=== PATIENT | male | born 1960 | race Caucasian/White ===

== ENCOUNTER 2018-08-29 11:04 | Day surgery (SDC) | payer MEDICAID ==
[~2018-08-29] VITALS: Ht 188 cm; Wt 124.0 kg
[~2018-08-29 11:04] MED LIST: FAMO40TA7 PO; LACRIL OP; NUTR250L61 JT; REGLAN PO; [UNRECOGNIZED DRUG - CODE] TD; clindamycin PEG
[2018-08-29 11:22] VITALS: BP 86/62
[2018-08-29] MEDS ORDERED: HALO0.5T GT ×2 (11:36→11:38)
[2018-08-29] MEDS ORDERED: FAMO40TA7 GT (11:42)
[2018-08-29] MEDS ORDERED: MIRT15TA3 GT (11:43)
[2018-08-29] MEDS ORDERED: DIPH25TA2 GT (11:44)
[2018-08-29] MEDS ORDERED: iohexol 300 MG/1 ML 50ml polymer ONE (11:46)
[2018-08-29] MEDS ORDERED: POLY17PO10 PO (11:49)
[2018-08-29] MEDS ORDERED: METO-292 GT (11:50)
[2018-08-29] MEDS ORDERED: OMEG1CAP13 GT (11:53)
[2018-08-29] MEDS ORDERED: IBUP100O20 PO (11:54)
[2018-08-29] MEDS ORDERED: LIDOcaine 1%/PF 5ML 10 MG/ML VIAL SQ ONE (12:00)
[2018-08-29 12:20] VITALS: BP 85/64
== END 2018-08-29 12:25 | disposition home or self-care (01) ==
LOC: SSTAY O 11:04
PROVIDERS: ATTEND Radiology Vascular & Interventional Radiology
DX: K94.23 Gastrostomy malfunction (principal); Y83.8 Other surgical procedures as the cause of abnormal reaction of the patient, or of later complication, without mention of misadventure at the time of the procedure; Y92.89 Other specified places as the place of occurrence of the external cause; G24.01 Drug induced subacute dyskinesia; F41.8 Other specified anxiety disorders; K21.9 Gastro-esophageal reflux disease without esophagitis; F10.21 Alcohol dependence, in remission; Z87.19 Personal history of other diseases of the digestive system; Z87.39 Personal history of other diseases of the musculoskeletal system and connective tissue; Z86.73 Personal history of transient ischemic attack (TIA), and cerebral infarction without residual deficits; Z86.69 Personal history of other diseases of the nervous system and sense organs; Z87.891 Personal history of nicotine dependence; Z87.01 Personal history of pneumonia (recurrent); Z99.3 Dependence on wheelchair; Z90.49 Acquired absence of other specified parts of digestive tract; Z79.1 Long term (current) use of non-steroidal anti-inflammatories (NSAID); Z79.899 Other long term (current) drug therapy; Z88.8 Allergy status to other drugs, medicaments and biological substances; Z98.890 Other specified postprocedural states
CPT/HCPCS: 49450; Q9967

== ENCOUNTER 2018-09-11 11:46 | Emergency (ER) | payer MEDICAID ==
[~2018-09-11] VITALS: Ht 188 cm; Wt 56.4 kg
[~2018-09-11 11:46] MED LIST changes: +DIPH25TA2 GT; +FAMO40TA7 GT; -FAMO40TA7 PO; +HALO0.5T GT; +IBUP100O20 PO; +METO-292 GT; +MIRT15TA3 GT; +OMEG1CAP13 GT; +POLY17PO10 PO; -[UNRECOGNIZED DRUG - CODE] TD; -clindamycin PEG
[2018-09-11 12:43] VITALS: BP 103/72
== END 2018-09-11 17:41 | disposition home or self-care (01) ==
LOC: ER 11:47
DX: R51 Headache (principal); Z88.8 Allergy status to other drugs, medicaments and biological substances; Z79.899 Other long term (current) drug therapy; Z98.890 Other specified postprocedural states
CPT/HCPCS: 99281

== ENCOUNTER 2018-11-27 12:02 | Emergency (ER) | payer OTHER, MEDICAID ==
[~2018-11-27] VITALS: Ht 188 cm; Wt 56.4 kg
--- NOTE | 2018-11-27 12:28 | NUR ---
PT BROUGHT IN FROM PARKING LOT IN PT OWN WHEELCHAIR, PT IS NON AMBULATORY WHEELCHAIR BOUND, CAREGIVER AT BEDSIDE DISCUSSING PT HX AND CURRENT STATUS WITH DR APODACA NOW.
[2018-11-27] MEDS ORDERED: normal saline 1000ML IV soln IVB ONE (12:45)
[2018-11-27 13:34] LABS: ALANINE AMINOTRANSFERASE 40 U/L (12-78); ALBUMIN 2.4 G/DL (3.4-5.0); ALBUMIN/GLOBULIN RATIO 0.5 (1.1-1.5); ALKALINE PHOSPHATASE 155 IU/L (46-116); ANION GAP 9 (8-16); ASPARTATE AMINO TRANSFERASE 34 U/L (10-37); BILIRUBIN,TOTAL 0.3 MG/DL (0.1-1.0); BLOOD UREA NITROGEN 56 MG/DL (7-18); BUN/CREATININE RATIO 39.4 (5.4-32.0); CALCIUM 9.1 MG/DL (8.5-10.1); CHLORIDE 108 MMOL/L (99-107); CREATININE 1.42 MG/DL (0.60-1.10); GLUCOSE 89 MG/DL (70-104); LIPASE 97 U/L (73-393); POTASSIUM 5.3 MMOL/L (3.5-5.1); SODIUM 146 MMOL/L (135-145); TOTAL CARBON DIOXIDE 29.1 MMOL/L (24-32); TOTAL PROTEIN 7.7 G/DL (6.4-8.2); eGFR 52 ML/MIN
[2018-11-27 13:58] LABS: CLARITY,URINE CLOUDY (Clear); COLOR,URINE YELLOW (Yellow); GLUCOSE, URINE NEGATIVE (Neg); KETONES,URINE NEGATIVE (Neg); LEUKOCYTE ESTERASE ,URINE LARGE (Neg); NITRITES, URINE POSITIVE (Neg); OCCULT BLOOD,URINE LARGE (Neg); PH,URINE 7.5 (4.8-8.0); PROTEIN,URINE 30 mg/dl (Neg); UA COLLECTION TYPE STRAIGHT CATH; UROBILINOGEN,URINE 0.2 E.U/dL (0.2-1.0)
[2018-11-27 14:13] LABS: RBC,URINE 20-50 /HPF (0-2); SQUAMOUS EPITHELIAL CELL,UR FEW /LPF (FEW); WBC,URINE 50-100 /HPF (0-4)
[2018-11-27 14:14] LABS: BACTERIA,URINE 2+ /HPF (Neg)
[2018-11-27 14:20] LABS: BASOPHILS % (AUTO) 0.4 % (0-1); EOSINOPHILS # (AUTO) 0.1 X10'3 (0-0.9); EOSINOPHILS % (AUTO) 1.2 % (0-6); HEMATOCRIT 36.7 % (42.0-52.0); HEMOGLOBIN 12.1 g/dl (14.0-17.9); LYMPHOCYTES # (AUTO) 0.6 X10'3 (1.1-4.8); LYMPHOCYTES % (AUTO) 10.6 % (21-51); MEAN CORPUSCULAR HEMOGLOBIN 27.3 PG (27.0-31.0); MEAN CORPUSCULAR HGB CONC 32.9 g/dL (33.0-36.5); MEAN PLATELET VOLUME 9.6 FL (7.4-10.4); MONOCYTES # (AUTO) 0.4 X10'3 (0-0.9); MONOCYTES % (AUTO) 8.2 % (2-12); NEUTROPHILS # (AUTO) 4.2 X10'3 (1.8-7.7); NEUTROPHILS % (AUTO) 79.6 % (42-75); PLATELET COUNT 118 X10'3 (140-440); RED BLOOD COUNT 4.43 X10'6 (4.70-6.10); WHITE BLOOD COUNT 5.2 X10'3 (4.5-11.0)
[2018-11-27] MEDS ORDERED: LEVO500T2 PO (15:28)
[2018-11-27] MEDS ORDERED: CefTRIAXone/D5W-Rocephin 1gm 50 ML IV ONE (15:30)
[2018-11-27 16:25] VITALS: BP 107/79
== END 2018-11-27 16:27 | disposition home or self-care (01) ==
LOC: ER 12:02
DX: S30.811A Abrasion of abdominal wall, initial encounter (principal); N39.0 Urinary tract infection, site not specified; R05 Cough; Z88.8 Allergy status to other drugs, medicaments and biological substances; Z79.899 Other long term (current) drug therapy; X58.XXXA Exposure to other specified factors, initial encounter; Y93.89 Activity, other specified; Y92.89 Other specified places as the place of occurrence of the external cause; Y99.8 Other external cause status
CPT/HCPCS: 36415; 71045; 80053; 81001; 83605; 83690; 85025; 87040; 87070; 87077; 87088; 87186; 96365; 99284; J0696; J7030

== ENCOUNTER 2018-11-30 23:44 | Inpatient (IN) | payer MEDICAID, OTHER | END 2018-12-06 17:45 | disposition home or self-care (01) | LOC: ER 23:44 → SUR 3N 12-03 17:05 → CICU 2S 12-01 01:38 | PROC: 5A1945Z Respiratory Ventilation, 24-96 Consecutive Hours (ICD-10-PCS; principal; ~2018-11-30) | PROC: 0BH17EZ Insertion of Endotracheal Airway into Trachea, Via Natural or Artificial Opening (ICD-10-PCS; ~2018-11-30) | DX: J96.00 Acute respiratory failure, unspecified whether with hypoxia or hypercapnia (principal); R57.1 Hypovolemic shock; N39.0 Urinary tract infection, site not specified; N20.0 Calculus of kidney; K92.2 Gastrointestinal hemorrhage, unspecified ==

== ENCOUNTER 2019-09-28 13:18 | Emergency (ER) | payer MEDICARE, MEDICAID, OTHER ==
[~2019-09-28] VITALS: Ht 188 cm; Wt 56.4 kg
[~2019-09-28 13:18] MED LIST changes: +ACYC15OI7 TP; -DIPH25TA2 GT; +DOCO2CRE TP; -FAMO40TA7 GT; -HALO0.5T GT; -IBUP100O20 PO; -LACRIL OP; -METO-292 GT; -MIRT15TA3 GT; -NUTR250L61 JT; -OMEG1CAP13 GT; -REGLAN PO; +RIFA550T PO; +VALA500T41 PO
[2019-09-28] MEDS ORDERED: normal saline 1000ML IV soln IVB ONE (13:50)
[2019-09-28 14:55] LABS: BASOPHILS % (AUTO) 0.3 % (0-1); EOSINOPHILS # (AUTO) 0.4 X10'3 (0-0.9); HEMATOCRIT 44.2 % (42.0-52.0); HEMOGLOBIN 14.5 g/dl (14.0-17.9); LYMPHOCYTES # (AUTO) 0.8 X10'3 (1.1-4.8); LYMPHOCYTES % (AUTO) 11.2 % (21-51); MEAN CORPUSCULAR HEMOGLOBIN 26.9 PG (27.0-31.0); MEAN CORPUSCULAR HGB CONC 32.8 g/dL (33.0-36.5); MEAN CORPUSCULAR VOLUME 81.9 FL (78-98); MEAN PLATELET VOLUME 9.8 FL (7.4-10.4); MONOCYTES # (AUTO) 0.6 X10'3 (0-0.9); MONOCYTES % (AUTO) 8.3 % (2-12); NEUTROPHILS # (AUTO) 5.4 X10'3 (1.8-7.7); NEUTROPHILS % (AUTO) 74.2 % (42-75); PLATELET COUNT 152 X10'3 (140-440); RED CELL DISTRIBUTION WIDTH 14.7 % (11.5-14.5); WHITE BLOOD COUNT 7.2 X10'3 (4.5-11.0)
[2019-09-28 15:12] LABS: ALANINE AMINOTRANSFERASE 49 U/L (12-78); ALBUMIN 3.3 G/DL (3.4-5.0); ALBUMIN/GLOBULIN RATIO 0.8 (1.1-1.5); ALKALINE PHOSPHATASE 210 IU/L (46-116); ANION GAP 7 (8-16); ASPARTATE AMINO TRANSFERASE 30 U/L (10-37); BILIRUBIN,TOTAL 0.6 MG/DL (0.1-1.0); BLOOD UREA NITROGEN 22 MG/DL (7-18); BUN/CREATININE RATIO 28.6 (5.4-32.0); CALCIUM 9.6 MG/DL (8.5-10.1); CHLORIDE 105 MMOL/L (99-107); CREATININE 0.77 MG/DL (0.60-1.10); GLUCOSE 100 MG/DL (70-104); POTASSIUM 4.8 MMOL/L (3.5-5.1); SODIUM 142 MMOL/L (135-145); TOTAL CARBON DIOXIDE 29.6 MMOL/L (24-32); TOTAL PROTEIN 7.6 G/DL (6.4-8.2); eGFR > 90 ML/MIN
[2019-09-28 15:14] LABS: CLARITY,URINE CLOUDY (Clear); COLOR,URINE YELLOW (Yellow); GLUCOSE, URINE NEGATIVE (Neg); KETONES,URINE NEGATIVE (Neg); LEUKOCYTE ESTERASE ,URINE LARGE (Neg); NITRITES, URINE NEGATIVE (Neg); OCCULT BLOOD,URINE LARGE (Neg); PROTEIN,URINE 100 mg/dl (Neg); UA COLLECTION TYPE FOLEY CATH
[2019-09-28 15:21] LABS: WBC,URINE TNTC /HPF (0-4)
[2019-09-28 15:22] LABS: BACTERIA,URINE 1+ /HPF (Neg); MUCUS STRANDS NONE SEEN /LPF (Neg); RBC,URINE 20-50 /HPF (0-2); SQUAMOUS EPITHELIAL CELL,UR NONE SEEN /LPF (FEW); WBC CLUMPS,URINE MANY /HPF (NEGATIVE)
[2019-09-28] MEDS ORDERED: CefTRIAXone/D5W-Rocephin 1gm 50 ML IV ONE (15:25)
[2019-09-28 16:03] VITALS: BP 118/87
[2019-09-28] MEDS ORDERED: KEF125L PO (16:16)
== END 2019-09-28 17:39 | disposition home or self-care (01) ==
LOC: ER 13:19
DX: R30.0 Dysuria (principal); R45.6 Violent behavior; N39.0 Urinary tract infection, site not specified; Z86.73 Personal history of transient ischemic attack (TIA), and cerebral infarction without residual deficits; K21.9 Gastro-esophageal reflux disease without esophagitis; Z98.890 Other specified postprocedural states; Z88.8 Allergy status to other drugs, medicaments and biological substances; Z79.899 Other long term (current) drug therapy
CPT/HCPCS: 36415; 80053; 81001; 83605; 85025; 87040; 87077; 87088; 87186; 96365; 99285; J0696; J7030; 99283

== ENCOUNTER 2019-10-03 10:03 | Emergency (ER) | payer MEDICARE, OTHER, MEDICAID ==
[~2019-10-03] VITALS: Ht 188 cm; Wt 56.4 kg
[~2019-10-03 10:03] MED LIST changes: +KEF125L PO
--- NOTE | 2019-10-03 11:58 | NUR ---
Notified Dr. Camara regarding unability to obtain CT. Patient unable to hold still for scan.
[2019-10-03] MEDS ORDERED: LORazepam 2 mg/ml vial IM ONE (12:35)
[2019-10-03] MEDS ORDERED: diphenhydrAMINE 50 mg/ml inj IM ONE (12:40)
[2019-10-03] MEDS ORDERED: haloperidol lactate 5mg/ml inj IM ONE (12:40)
--- NOTE | 2019-10-03 12:40 | NUR ---
Notified Dr. Camara regarding patients inability to go to CT scan, Dr. Camara gave verbal order for haldol 5 mg IM once now and benedryl 25 mg IM once now. Will place order and administer as prescribed.
--- NOTE | 2019-10-03 12:50 | NUR ---
Notified Dilma in CT regarding patient having been medicated for CT scan. Will attempt to take patient to CT scan at 1305.
[2019-10-03 14:30] VITALS: BP 145/100
== END 2019-10-03 14:33 | disposition home or self-care (01) ==
LOC: ER 10:04
DX: T83.098D Other mechanical complication of other urinary catheter, subsequent encounter (principal); N20.0 Calculus of kidney; K21.9 Gastro-esophageal reflux disease without esophagitis; Z86.73 Personal history of transient ischemic attack (TIA), and cerebral infarction without residual deficits; Z98.890 Other specified postprocedural states; Z88.8 Allergy status to other drugs, medicaments and biological substances; Z79.899 Other long term (current) drug therapy; Y84.6 Urinary catheterization as the cause of abnormal reaction of the patient, or of later complication, without mention of misadventure at the time of the procedure; Y92.89 Other specified places as the place of occurrence of the external cause
CPT/HCPCS: 74176; 96372; 99284; J1200; J1630

== ENCOUNTER 2020-03-14 10:17 | Inpatient (IN) | payer MEDICARE, OTHER, MEDICAID ==
[~2020-03-14] VITALS: Ht 188 cm; Wt 47.3 kg
[~2020-03-14 10:17] MED LIST changes: -KEF125L PO
--- NOTE | 2020-03-14 10:42 | NUR ---
DR MARY MADE AWARE OF BP 74/57, IVF INITIATED PER .
[2020-03-14 10:54] LABS: CLARITY,URINE CLOUDY (Clear); COLOR,URINE YELLOW (Yellow); GLUCOSE, URINE NEGATIVE (Neg); KETONES,URINE NEGATIVE (Neg); LEUKOCYTE ESTERASE ,URINE MODERATE (Neg); NITRITES, URINE NEGATIVE (Neg); OCCULT BLOOD,URINE LARGE (Neg); PH,URINE 6.5 (4.8-8.0); PROTEIN,URINE 100 mg/dl (Neg)
[2020-03-14 10:55] LABS: UA COLLECTION TYPE FOLEY CATH
[2020-03-14 10:55] LABS: WHITE BLOOD COUNT 11.9 X10'3 (4.5-11.0)
[2020-03-14 10:57] LABS: BASOPHILS % (AUTO) 0.2 % (0-1); EOSINOPHILS % (AUTO) 0 % (0-6); HEMATOCRIT 39.9 % (42.0-52.0); LYMPHOCYTES # (AUTO) 0.2 X10'3 (1.1-4.8); LYMPHOCYTES % (AUTO) 1.7 % (21-51); MEAN CORPUSCULAR HEMOGLOBIN 26.6 PG (27.0-31.0); MEAN CORPUSCULAR HGB CONC 32.6 g/dL (33.0-36.5); MEAN CORPUSCULAR VOLUME 81.6 FL (78-98); MONOCYTES # (AUTO) 0.6 X10'3 (0-0.9); MONOCYTES % (AUTO) 5.5 % (2-12); NEUTROPHILS % (AUTO) 92.6 % (42-75); PLATELET COUNT 214 X10'3 (140-440); RED BLOOD COUNT 4.88 X10'6 (4.70-6.10); RED CELL DISTRIBUTION WIDTH 15.5 % (11.5-14.5)
--- NOTE | 2020-03-14 10:57 | NUR ---
DR APODACA AT BEDSIDE TO ASSESS PATIENT AT THIS TIME. SON AT BEDSIDE, DNR ORDER SHOWN TO MD, COPY MADE AND PLACED IN CHART.
[2020-03-14 11:02] LABS: RBC,URINE TNTC /HPF (0-2); SQUAMOUS EPITHELIAL CELL,UR NONE SEEN /LPF (FEW)
[2020-03-14 11:02] LABS: ALANINE AMINOTRANSFERASE 31 U/L (12-78); ALBUMIN 2.7 G/DL (3.4-5.0); ALBUMIN/GLOBULIN RATIO 0.6 (1.1-1.5); ALKALINE PHOSPHATASE 156 IU/L (46-116); ANION GAP 9 (8-16); ASPARTATE AMINO TRANSFERASE 24 U/L (10-37); BILIRUBIN,TOTAL 0.5 MG/DL (0.1-1.0); BLOOD UREA NITROGEN 25 MG/DL (7-18); BUN/CREATININE RATIO 15.7 (5.4-32.0); CHLORIDE 100 MMOL/L (99-107); CREATININE 1.59 MG/DL (0.60-1.10); GLUCOSE 142 MG/DL (70-104); POTASSIUM 3.7 MMOL/L (3.5-5.1); SODIUM 133 MMOL/L (135-145); TOTAL CARBON DIOXIDE 23.8 MMOL/L (24-32); TOTAL PROTEIN 7.4 G/DL (6.4-8.2); eGFR 45 ML/MIN
[2020-03-14 11:03] LABS: WBC CLUMPS,URINE MODERATE /HPF (NEGATIVE); WBC,URINE TNTC /HPF (0-4)
[2020-03-14 11:05] LABS: BACTERIA,URINE 2+ /HPF (Neg)
[2020-03-14] MEDS ORDERED: normal saline 1000ML IV soln IVB ONE (11:15)
[2020-03-14] MEDS ORDERED: CefTRIAXone/D5W-Rocephin 1gm 50 ML IV ONE (11:15)
[2020-03-14 11:23] LABS: TOTAL CELLS COUNTED 100
[2020-03-14 11:26] LABS: PLATELET ESTIMATE NORMAL; TOXIC VACUOLATION 1+
[2020-03-14] MEDS ORDERED: METO5SOL GT (11:39)
[2020-03-14] MEDS ORDERED: BACDS GT (11:39)
[2020-03-14] MEDS ORDERED: FAMO40TA59 GT (11:39)
[2020-03-14] MEDS ORDERED: METH1TAB32 GT (11:39)
[2020-03-14] MEDS ORDERED: normal saline 1000ml 1,000 ML IV SCH (11:48)
[2020-03-14] MEDS ORDERED: mag hydrox/Alum hydrox/simeth 30ml oral suspension PO PRN (11:50)
[2020-03-14] MEDS ORDERED: magnesium hydroxide 30ml (MOM) UD suspension PO PRN (11:50)
[2020-03-14] MEDS ORDERED: morphine 2 MG/ML inj. syringe IV PRN ×2 (11:50)
[2020-03-14] MEDS ORDERED: ondansetron/PF 4mg/2ml inj IV PRN (11:50)
[2020-03-14] MEDS ORDERED: acetaminophen 325mg tablet PO PRN ×2 (11:50)
--- NOTE | 2020-03-14 13:09 | NUR ---
PAGER ID: [phone] MESSAGE: [phone] Fide Haddad new patient to the unit, he needs the comfort care measures orders entered. VIDYA in chart. Thank you. Debra [id number]
--- NOTE | 2020-03-14 13:16 | NUR ---
Patient on the unit
[2020-03-14 13:30] VITALS: BP 76/63
--- NOTE | 2020-03-14 13:36 | NUR ---
PAGER ID: [phone] MESSAGE: [phone] Mike Haddad He needs a restraint order as well. He has been in them in the ER without an order. Debra [phone]
--- NOTE | 2020-03-14 14:49 | NUR ---
Dr. Torres paged regarding needing order for restraints. Awaiting call back.
--- NOTE | 2020-03-14 15:00 | NUR ---
Patient in with chronic restraints from home. Patient will kick and throw arm to hit staff. Order received to continue.
[2020-03-14] MEDS: dextrose 5%-1/2 normal saline 1,000 ML IV SCH (15:41)
--- NOTE | 2020-03-14 16:03 | NUR ---
Talked by phone to Hans, he is aware patient is currently on D5 1/2NS and not using the peg tube to feed patient currently. Hans states that he wants brother home violet so they can take care of the patient because they know how to care for him and his needs.
[2020-03-14 20:00] VITALS: BP 73/55
[2020-03-14 20:30] VITALS: BP 80/54
[2020-03-15] VITALS: BP 74/53
[2020-03-15] MEDS: dextrose 5%-1/2 normal saline 1,000 ML IV SCH (04:49)
--- NOTE | 2020-03-15 06:30 | NUR ---
Problems reprioritized. Patient report given, questions answered & plan of care reviewed with Loren DOW.
--- NOTE | 2020-03-15 06:44 | NUR ---
Patient in room [facility] 347. I have received report from VICTOR M Wolf and had the opportunity to ask questions and assume patient care.
[2020-03-15] MEDS: CefTRIAXone/D5W-Rocephin 1gm 50 ML IV SCH (07:30)
[2020-03-15 07:52] VITALS: BP 84/55
[2020-03-15] MEDS ORDERED: LORazepam 2 mg/ml vial IV ONE (10:25)
[2020-03-15] MEDS ORDERED: vancomycin/NS 1 GM ADD-VANTAGE 250 ML IV ONE (10:25)
[2020-03-15 11:00] VITALS: BP 107/71
[2020-03-15] MEDS: vancomycin/NS 1 GM ADD-VANTAGE 250 ML X 1 DOSE IV SCH (11:43)
[2020-03-15 12:29] LABS: BASOPHILS % (AUTO) 0.4 % (0-1); EOSINOPHILS # (AUTO) 0.1 X10'3 (0-0.9); EOSINOPHILS % (AUTO) 1.4 % (0-6); HEMATOCRIT 36.2 % (42.0-52.0); HEMOGLOBIN 11.6 g/dl (14.0-17.9); LYMPHOCYTES # (AUTO) 0.4 X10'3 (1.1-4.8); LYMPHOCYTES % (AUTO) 5.9 % (21-51); MEAN CORPUSCULAR HEMOGLOBIN 26.4 PG (27.0-31.0); MEAN CORPUSCULAR HGB CONC 31.9 g/dL (33.0-36.5); MEAN CORPUSCULAR VOLUME 82.6 FL (78-98); MEAN PLATELET VOLUME 9.1 FL (7.4-10.4); MONOCYTES # (AUTO) 0.3 X10'3 (0-0.9); MONOCYTES % (AUTO) 4.9 % (2-12); NEUTROPHILS # (AUTO) 6.2 X10'3 (1.8-7.7); NEUTROPHILS % (AUTO) 87.4 % (42-75); PLATELET COUNT 180 X10'3 (140-440); RED BLOOD COUNT 4.39 X10'6 (4.70-6.10); RED CELL DISTRIBUTION WIDTH 15.4 % (11.5-14.5); WHITE BLOOD COUNT 7.1 X10'3 (4.5-11.0)
[2020-03-15 12:40] LABS: ALBUMIN 2.2 G/DL (3.4-5.0); ANION GAP 7 (8-16); BLOOD UREA NITROGEN 19 MG/DL (7-18); CALCIUM 8.8 MG/DL (8.5-10.1); CHLORIDE 109 MMOL/L (99-107); CREATININE 0.95 MG/DL (0.60-1.10); GLUCOSE 97 MG/DL (70-104); POTASSIUM 4.9 MMOL/L (3.5-5.1); SODIUM 141 MMOL/L (135-145); TOTAL CARBON DIOXIDE 25.5 MMOL/L (24-32); eGFR 82 ML/MIN
--- NOTE | 2020-03-15 15:11 | NUR ---
Tube feeding consult re: to continue home tube feed. Has a Gtube. H/o TBI, WC bound, and mx colectomies as a teen. Pt was receiving Nutren at home. Spoke with Hans (patient's brother and caregiver) over telephone and Bedside RN. Reported that at home patient receives the following: bolus feeds four times daily using Nutren 1.5 with 150 ml bolus with 400 ml free water flush at 8:00, 150 ml bolus with 400 ml water flush at 12:00, 250 ml bolus with 400 ml water flush at 16:00, and 250 ml bolus with 400 ml water flush at 20:00; this is providing total volume of 800 ml, 1200 cals, 54 g protein, and 611 ml water at home. Patient takes reglan at home, brother Hans reported that patient cannot tolerate high volumes and cannot go higher than that. With the patient receiving 400 ml of free water with each feeding he could likely tolerate a higher volume of tube feeding with a decrease in water flush. Called [facility] for the prescribed tube feeding regimen which is 5 cans of Nutren 1.5 daily; each can is 250 ml. This provides 1250 ml volume, 85 g protein, 955 ml water. The home tube feeding regimen at home is providing 675 calories less than the recommended tube feeding given by the dietitians at [facility]. Visited patient at bedside with student nurse, observed that patient appears with visible fat and muscle wasting, student nurse able to place hands around patient's thigh, visibly very small. Bedscale weight is 104 lbs. However patient's brother reports weight to be 124 lbs for two years. Minerva reports a weight of 124 lbs last September. Last admission pt met criteria for malnutrition as he does again for cachetic appearance. will notify oncology social work regarding discrepancy in reported wt, wt loss, and tube feeding regimen from home versus [facility]. Rec: 1. Continue [facility] tube feeding regimen for patient using Nutren 1.5 (patient's brother Hans who is caregiver is willing provide the formula per his preference). Provide 5 cans daily every 3 hours. Each bolus contains 250 ml. Provide five times daily at 8:00, 11:00, 14:00, 17:00, and 20:00. This will provide total volume 1250 ml volume daily, 1875 cals, 85 g protein, and 955 ml water. 2. water flush 95 ml before and after each bolus; will provide total of 190 ml each feeding and total of 950 ml water daily 3. prealbumin /, daily wts 4. routine bowel care; patient takes reglan at home d/w bedside RN who notified 5. monitor for TF tolerance Addendum: 03/15/20 at [address] Amended: Links added.
--- NOTE | 2020-03-15 17:10 | NUR ---
Patient does not have anymore tube feed formula left from home. Caregivers called and they stated that they would bring us in a good stock. Patient's next tube feed is due at 1800. Caregivers said they would be here as soon as possible.
--- NOTE | 2020-03-15 18:15 | NUR ---
Patient had residual tube feed of 500 mL. paged about holding tube feed for the 1800 time.
[2020-03-15 19:44] VITALS: BP 95/63
[2020-03-15] MEDS: lactobacillus rhamnosus 10,000 MMU CELLS/CAPSULE PO SCH (20:00)
[2020-03-15 23:42] VITALS: BP 103/71
[2020-03-16 05:23] LABS: BASOPHILS % (AUTO) 0.5 % (0-1); EOSINOPHILS # (AUTO) 0.1 X10'3 (0-0.9); EOSINOPHILS % (AUTO) 2.7 % (0-6); HEMATOCRIT 35.8 % (42.0-52.0); HEMOGLOBIN 11.5 g/dl (14.0-17.9); LYMPHOCYTES # (AUTO) 0.8 X10'3 (1.1-4.8); LYMPHOCYTES % (AUTO) 15.1 % (21-51); MEAN CORPUSCULAR HEMOGLOBIN 26.7 PG (27.0-31.0); MEAN CORPUSCULAR HGB CONC 32.1 g/dL (33.0-36.5); MEAN PLATELET VOLUME 9.3 FL (7.4-10.4); MONOCYTES # (AUTO) 0.5 X10'3 (0-0.9); MONOCYTES % (AUTO) 8.5 % (2-12); NEUTROPHILS # (AUTO) 3.9 X10'3 (1.8-7.7); NEUTROPHILS % (AUTO) 73.2 % (42-75); PLATELET COUNT 195 X10'3 (140-440); RED BLOOD COUNT 4.32 X10'6 (4.70-6.10); RED CELL DISTRIBUTION WIDTH 15.8 % (11.5-14.5); WHITE BLOOD COUNT 5.3 X10'3 (4.5-11.0)
[2020-03-16 05:25] LABS: ALBUMIN 2.2 G/DL (3.4-5.0); ANION GAP 5 (8-16); BLOOD UREA NITROGEN 17 MG/DL (7-18); CALCIUM 8.8 MG/DL (8.5-10.1); CHLORIDE 108 MMOL/L (99-107); CREATININE 0.81 MG/DL (0.60-1.10); GLUCOSE 116 MG/DL (70-104); POTASSIUM 4.4 MMOL/L (3.5-5.1); PREALBUMIN 12.9 MG/DL (19-36); SODIUM 140 MMOL/L (135-145); TOTAL CARBON DIOXIDE 26.6 MMOL/L (24-32); eGFR > 90 ML/MIN
--- NOTE | 2020-03-16 06:48 | NUR ---
Problems reprioritized. Patient report given, questions answered & plan of care reviewed with Mariel RN.
[2020-03-16 07:00] VITALS: BP 97/73
[2020-03-16] MEDS: CefTRIAXone/D5W-Rocephin 1gm 50 ML IV SCH (07:50)
[2020-03-16] MEDS: lactobacillus rhamnosus 10,000 MMU CELLS/CAPSULE PO SCH ×2 (07:50→19:16)
[2020-03-16 11:00] VITALS: BP 108/82
[2020-03-16] MEDS: vancomycin/NS 1 GM ADD-VANTAGE 250 ML X 1 DOSE IV SCH (11:55)
[2020-03-16 19:00] VITALS: BP 101/74
--- NOTE | 2020-03-16 19:02 | NUR ---
Problems reprioritized. Patient report given, questions answered & plan of care reviewed with VICTOR M Whiting.
[2020-03-17] VITALS: BP 95/68
[2020-03-17 06:18] LABS: ALBUMIN 2.3 G/DL (3.4-5.0); ANION GAP 7 (8-16); BLOOD UREA NITROGEN 17 MG/DL (7-18); BUN/CREATININE RATIO 30.4 (5.4-32.0); CALCIUM 8.1 MG/DL (8.5-10.1); CHLORIDE 108 MMOL/L (99-107); CREATININE 0.56 MG/DL (0.60-1.10); GLUCOSE 80 MG/DL (70-104); POTASSIUM 4.7 MMOL/L (3.5-5.1); SODIUM 141 MMOL/L (135-145); TOTAL CARBON DIOXIDE 26.1 MMOL/L (24-32); eGFR > 90 ML/MIN
--- NOTE | 2020-03-17 06:49 | NUR ---
Patient in room [facility] 347. I have received report from Henok DOW and had the opportunity to ask questions and assume patient care.
[2020-03-17 07:00] VITALS: BP 113/78
[2020-03-17] MEDS: lactobacillus rhamnosus 10,000 MMU CELLS/CAPSULE PO SCH (08:00)
[2020-03-17 08:34] LABS: BASOPHILS % (AUTO) 0.8 % (0-1); EOSINOPHILS # (AUTO) 0.1 X10'3 (0-0.9); EOSINOPHILS % (AUTO) 3.2 % (0-6); HEMATOCRIT 38.5 % (42.0-52.0); HEMOGLOBIN 12.2 g/dl (14.0-17.9); LYMPHOCYTES # (AUTO) 1.2 X10'3 (1.1-4.8); LYMPHOCYTES % (AUTO) 28.5 % (21-51); MEAN CORPUSCULAR HEMOGLOBIN 26.1 PG (27.0-31.0); MEAN CORPUSCULAR HGB CONC 31.6 g/dL (33.0-36.5); MEAN CORPUSCULAR VOLUME 82.5 FL (78-98); MEAN PLATELET VOLUME 9.1 FL (7.4-10.4); MONOCYTES # (AUTO) 0.4 X10'3 (0-0.9); NEUTROPHILS # (AUTO) 2.5 X10'3 (1.8-7.7); NEUTROPHILS % (AUTO) 57.5 % (42-75); PLATELET COUNT 220 X10'3 (140-440); RED BLOOD COUNT 4.67 X10'6 (4.70-6.10); RED CELL DISTRIBUTION WIDTH 15.5 % (11.5-14.5); WHITE BLOOD COUNT 4.3 X10'3 (4.5-11.0)
--- NOTE | 2020-03-17 08:41 | NUR ---
Per Resource RN, Sara, pt pulled out his PEG tube despite restraints. GI clinical laboratory aide stated only MDs are allowed to replace PEG tubes. Dr. Torres notified and stated he'll call GI MD and for nursing to insert Perez catheter in site to maintain integrity of opening. Nsg Safety Sealer notified d/t P&P not found. GI clinical laboratory aide, Yu, inquired of and stated she will temporarily place a GTube to maintain integrity ONLY (no feeds) until PEG is placed by MD. Addendum: 03/17/20 at 0910 by Sheeba Villalpando RN Yu DOW stated GT placed to maintain integrity of os only, not for feeds, and Angio MD will insert new tube, per Dr. Torres.
--- NOTE | 2020-03-17 08:53 | NUR ---
[id number] PHONE CALL FROM SURGICAL FLOOR. LOW PROFILE PEG 18 X 2.0 FELL OUT. WAS ASKED BY DR TO PUT IN F/C TO KEEP TRACK OPEN. CHLORA PREP USED TO CLEAN SITE SITE,GÓMEZ CHLORIDE SPRAY TO PEG SITE, TO KNUMB AREA. PEG REPLACEMENT PLACED 18 FR BALLOON 10ML. THIS IS ONLY TEMPORARY TO KEEP TRACK OPEN. PT BEING REFURRES TO ANGIO DR TO REPLACE LOW FROFILE PEG.
[2020-03-17] MEDS: CefTRIAXone/D5W-Rocephin 1gm 50 ML IV SCH (09:38)
[2020-03-17] MEDS: vancomycin/NS 1 GM ADD-VANTAGE 250 ML X 1 DOSE IV SCH (11:00)
--- NOTE | 2020-03-17 12:00 | NUR ---
Patient tube placement complete, awaiting the results of KUB for use.
[2020-03-17] MEDS ORDERED: DOXY-243 PO (13:38)
[2020-03-17] MEDS ORDERED: LEVO500T2 PO (13:38)
--- NOTE | 2020-03-17 17:55 | NUR ---
Patient discharged into the care of family. patient medications were gone over at this time. Care was the same as prior to hospitalization so educational packets including sepsis and UTI were sent with patient. Patient was put in his own wheel chair for transport via gilbert lift, patient taken down to family by RN and discharge paper were signed at this time. Patient left with family at this time
[2020-03-18] MEDS ORDERED: VANCOMYCIN LEVEL IV ONE (10:30)
== END 2020-03-17 18:04 | disposition home health service (06) | DRG 871 ==
LOC: ER 10:17 → ED HOLD 11:48 → SUR 3N 13:11 → CMPBEDREQ 03-15 18:48
PROVIDERS: ADMIT Internal Medicine; ATTEND Internal Medicine
PROC: 0D20XUZ Change Feeding Device in Upper Intestinal Tract, External Approach (ICD-10-PCS; principal; 2020-03-17)
DX: A41.9 Sepsis, unspecified organism (principal); N17.0 Acute kidney failure with tubular necrosis; E43 Unspecified severe protein-calorie malnutrition; N39.0 Urinary tract infection, site not specified; Z68.1 Body mass index [BMI] 19.9 or less, adult; D64.9 Anemia, unspecified; B96.1 Klebsiella pneumoniae [K. pneumoniae] as the cause of diseases classified elsewhere; R65.20 Severe sepsis without septic shock; Z51.5 Encounter for palliative care; K21.9 Gastro-esophageal reflux disease without esophagitis; Z66 Do not resuscitate; Z86.73 Personal history of transient ischemic attack (TIA), and cerebral infarction without residual deficits; Z88.0 Allergy status to penicillin; Z88.8 Allergy status to other drugs, medicaments and biological substances; Z79.899 Other long term (current) drug therapy
CPT/HCPCS: 36415; 43763; 74018; 80048; 80053; 81001; 82948; 83605; 84134; 84145; 85007; 85025; 87040; 87077; 87081; 87088; 87186; 93005; 96365; 99285; B4087; G0378; J0696; J2060; J2270; J3370; J7030

== ENCOUNTER 2020-04-15 16:20 | Emergency (ER) | payer MEDICARE, OTHER, MEDICAID ==
[~2020-04-15] VITALS: Ht 165.1 cm; Wt 63.6 kg
[~2020-04-15 16:20] MED LIST changes: -ACYC15OI7 TP; -DOCO2CRE TP; +FAMO40TA59 GT; +LEVO500T2 PO; +METH1TAB32 GT; +METO5SOL GT; -POLY17PO10 PO; -RIFA550T PO; -VALA500T41 PO
[2020-04-15] MEDS ORDERED: ondansetron/PF 4mg/2ml inj IV ONE (16:30)
[2020-04-15] MEDS ORDERED: normal saline 1000ML IV soln IV ONE (16:30)
[2020-04-15] MEDS ORDERED: famotidine/PF 10 mg/ml inj IV ONE (16:30)
[2020-04-15 16:57] LABS: BASOPHILS % (AUTO) 0.6 % (0-1); EOSINOPHILS # (AUTO) 0.3 X10'3 (0-0.9); HEMATOCRIT 41.8 % (42.0-52.0); HEMOGLOBIN 13.5 g/dl (14.0-17.9); LYMPHOCYTES # (AUTO) 0.9 X10'3 (1.1-4.8); LYMPHOCYTES % (AUTO) 20.2 % (21-51); MEAN CORPUSCULAR HEMOGLOBIN 26.5 PG (27.0-31.0); MEAN CORPUSCULAR HGB CONC 32.3 g/dL (33.0-36.5); MEAN CORPUSCULAR VOLUME 82.1 FL (78-98); MEAN PLATELET VOLUME 9.3 FL (7.4-10.4); MONOCYTES # (AUTO) 0.4 X10'3 (0-0.9); MONOCYTES % (AUTO) 8.3 % (2-12); NEUTROPHILS # (AUTO) 2.7 X10'3 (1.8-7.7); NEUTROPHILS % (AUTO) 62.9 % (42-75); PLATELET COUNT 177 X10'3 (140-440); RED BLOOD COUNT 5.09 X10'6 (4.70-6.10); RED CELL DISTRIBUTION WIDTH 16.2 % (11.5-14.5); WHITE BLOOD COUNT 4.2 X10'3 (4.5-11.0)
[2020-04-15 17:11] LABS: ALANINE AMINOTRANSFERASE 39 U/L (12-78); ALBUMIN 3.3 G/DL (3.4-5.0); ALBUMIN/GLOBULIN RATIO 0.7 (1.1-1.5); ALKALINE PHOSPHATASE 164 IU/L (46-116); ANION GAP 7 (8-16); ASPARTATE AMINO TRANSFERASE 29 U/L (10-37); BILIRUBIN,TOTAL 0.4 MG/DL (0.1-1.0); BLOOD UREA NITROGEN 15 MG/DL (7-18); BUN/CREATININE RATIO 24.6 (5.4-32.0); CALCIUM 9.2 MG/DL (8.5-10.1); CHLORIDE 100 MMOL/L (99-107); CREATININE 0.61 MG/DL (0.60-1.10); GLUCOSE 108 MG/DL (70-104); POTASSIUM 4.3 MMOL/L (3.5-5.1); SODIUM 135 MMOL/L (135-145); TOTAL CARBON DIOXIDE 28.4 MMOL/L (24-32); TOTAL PROTEIN 7.8 G/DL (6.4-8.2); eGFR > 90 ML/MIN
[2020-04-15 17:24] LABS: CLARITY,URINE CLOUDY (Clear); COLOR,URINE YELLOW (Yellow); GLUCOSE, URINE NEGATIVE (Neg); KETONES,URINE NEGATIVE (Neg); LEUKOCYTE ESTERASE ,URINE LARGE (Neg); NITRITES, URINE POSITIVE (Neg); OCCULT BLOOD,URINE MODERATE (Neg); PROTEIN,URINE TRACE mg/dl (Neg)
[2020-04-15 17:26] LABS: UA COLLECTION TYPE STRAIGHT CATH
[2020-04-15 17:34] LABS: SQUAMOUS EPITHELIAL CELL,UR NONE SEEN /LPF (FEW)
[2020-04-15 17:35] LABS: MUCUS STRANDS NONE SEEN /LPF (Neg); RBC,URINE 20-50 /HPF (0-2); TRANSITIONAL EPI CELLS,URINE MODERATE /HPF
[2020-04-15 17:36] LABS: WBC,URINE 20-30 /HPF (0-4)
[2020-04-15 17:37] LABS: BACTERIA,URINE 4+ /HPF (Neg); RENAL CELLS, URINE FEW /HPF
[2020-04-15] MEDS: diatr meglu/diatrizoate 30ml oral sol.-(3 dose) bottle PO SCH ×3 (18:16→20:07)
[2020-04-15] MEDS ORDERED: haloperidol lactate 5mg/ml inj IM ONE (19:30)
[2020-04-15] MEDS ORDERED: diphenhydrAMINE 50 mg/ml inj IM ONE (19:30)
[2020-04-15 22:25] VITALS: BP 138/69
== END 2020-04-15 22:26 | disposition home or self-care (01) ==
LOC: ER 16:20
DX: S06.9X0D Unspecified intracranial injury without loss of consciousness, subsequent encounter (principal); T85.598A Other mechanical complication of other gastrointestinal prosthetic devices, implants and grafts, initial encounter; K21.9 Gastro-esophageal reflux disease without esophagitis; Z86.73 Personal history of transient ischemic attack (TIA), and cerebral infarction without residual deficits; Z98.890 Other specified postprocedural states; Z88.8 Allergy status to other drugs, medicaments and biological substances; Z79.899 Other long term (current) drug therapy; X58.XXXD Exposure to other specified factors, subsequent encounter
CPT/HCPCS: 36415; 71045; 74176; 80053; 81001; 83605; 85025; 87040; 87077; 87088; 93005; 96361; 96372; 96374; 96375; 99285; J1200; J1630; J2405; J3490; J7030; Q9963; 87186

== ENCOUNTER 2020-04-19 06:30 | Inpatient (IN) | payer MEDICARE, OTHER, MEDICAID ==
[~2020-04-19] VITALS: Ht 182.9 cm; Wt 54.5 kg
[~2020-04-19 06:30] MED LIST changes: -LEVO500T2 PO
[2020-04-19] MEDS ORDERED: dextrose 5%-normal saline 1,000 ML IV SCH (06:40)
[2020-04-19] MEDS ORDERED: normal saline 1000ML IV soln IVB ONE (06:40)
[2020-04-19] MEDS ORDERED: ondansetron/PF 4mg/2ml inj IV ONE (06:40)
--- NOTE | 2020-04-19 06:56 | NUR ---
Residual Check at 2230-350ml. Patient restless and irritable. Feeding @2200 held. Residual recheck @0030-300ml. Reglan administer to help with motility and some free water administer. Addendum: 04/20/20 at 0659 by Jason Gunter RN Wrong time for 0100
[2020-04-19 07:27] LABS: BASOPHILS % (AUTO) 0.5 % (0-1); EOSINOPHILS # (AUTO) 0.4 X10'3 (0-0.9); EOSINOPHILS % (AUTO) 5.3 % (0-6); HEMATOCRIT 40.6 % (42.0-52.0); HEMOGLOBIN 13.3 g/dl (14.0-17.9); LYMPHOCYTES # (AUTO) 1.1 X10'3 (1.1-4.8); LYMPHOCYTES % (AUTO) 13.8 % (21-51); MEAN CORPUSCULAR HEMOGLOBIN 26.9 PG (27.0-31.0); MEAN CORPUSCULAR HGB CONC 32.8 g/dL (33.0-36.5); MEAN CORPUSCULAR VOLUME 82.1 FL (78-98); MEAN PLATELET VOLUME 9.3 FL (7.4-10.4); MONOCYTES # (AUTO) 0.6 X10'3 (0-0.9); MONOCYTES % (AUTO) 7.6 % (2-12); NEUTROPHILS # (AUTO) 5.7 X10'3 (1.8-7.7); NEUTROPHILS % (AUTO) 72.8 % (42-75); PLATELET COUNT 199 X10'3 (140-440); RED BLOOD COUNT 4.94 X10'6 (4.70-6.10); RED CELL DISTRIBUTION WIDTH 16.2 % (11.5-14.5); WHITE BLOOD COUNT 7.8 X10'3 (4.5-11.0)
[2020-04-19 07:43] LABS: ALANINE AMINOTRANSFERASE 27 U/L (12-78); ALBUMIN 3.4 G/DL (3.4-5.0); ALBUMIN/GLOBULIN RATIO 0.8 (1.1-1.5); ALKALINE PHOSPHATASE 174 IU/L (46-116); ANION GAP 9 (8-16); ASPARTATE AMINO TRANSFERASE 23 U/L (10-37); BILIRUBIN,TOTAL 0.5 MG/DL (0.1-1.0); BLOOD UREA NITROGEN 15 MG/DL (7-18); BUN/CREATININE RATIO 23.4 (5.4-32.0); CALCIUM 9.3 MG/DL (8.5-10.1); CHLORIDE 101 MMOL/L (99-107); CREATININE 0.64 MG/DL (0.60-1.10); GLUCOSE 81 MG/DL (70-104); POTASSIUM 4.3 MMOL/L (3.5-5.1); SODIUM 137 MMOL/L (135-145); TOTAL CARBON DIOXIDE 26.7 MMOL/L (24-32); TOTAL PROTEIN 7.7 G/DL (6.4-8.2); eGFR > 90 ML/MIN
[2020-04-19 07:47] LABS: LIPASE 149 U/L (73-393); TROPONIN I < 0.04 NG/ML (0.0-0.05)
[2020-04-19 08:56] LABS: CLARITY,URINE CLOUDY (Clear); COLOR,URINE YELLOW (Yellow); GLUCOSE, URINE NEGATIVE (Neg); KETONES,URINE NEGATIVE (Neg); LEUKOCYTE ESTERASE ,URINE LARGE (Neg); NITRITES, URINE NEGATIVE (Neg); OCCULT BLOOD,URINE LARGE (Neg); PROTEIN,URINE 30 mg/dl (Neg)
[2020-04-19 09:02] LABS: UA COLLECTION TYPE FOLEY CATH
[2020-04-19 09:03] LABS: WBC,URINE TNTC /HPF (0-4)
[2020-04-19 09:04] LABS: BACTERIA,URINE 4+ /HPF (Neg); MUCUS STRANDS NONE SEEN /LPF (Neg); RBC,URINE TNTC /HPF (0-2); SQUAMOUS EPITHELIAL CELL,UR FEW /LPF (FEW); TRIPLE PHOSPHATE CRYST 1+ /HPF (NEGATIVE)
[2020-04-19] MEDS ORDERED: CefTRIAXone 2gm/D5W 50ml BAG 50 ML IV ONE (09:10)
[2020-04-19] MEDS ORDERED: morphine 4 MG/ML inj SYRINge IV ONE (09:10)
[2020-04-19] MEDS ORDERED: ketorolac trometh. 30mg/ml inj. IV ONE (09:25)
--- NOTE | 2020-04-19 09:45 | NUR ---
pediatric critical care nurse doing suctioning prn.
[2020-04-19] MEDS ORDERED: magnesium 4gm in 100ml NS 100 ML IV PRN (10:30)
[2020-04-19] MEDS ORDERED: magnesium Cl slow-release 64mg tablet PO PRN (10:30)
[2020-04-19] MEDS ORDERED: acetaminophen 650mg rectal suppository RC PRN (10:30)
[2020-04-19] MEDS ORDERED: ondansetron/PF 4mg/2ml inj IV PRN (10:30)
[2020-04-19] MEDS ORDERED: magnesium 2GM in 50ml NS 50 ML IV PRN (10:30)
[2020-04-19] MEDS ORDERED: metoclopramide 5 mg/ml inj IV PRN (10:30)
[2020-04-19] MEDS: normal saline 1000ml 1,000 ML IV SCH (11:00)
[2020-04-19] MEDS ORDERED: dextrose 50%-water 50ml dispensing syringe IV ONE (12:04)
[2020-04-19 12:21] VITALS: BP 137/99
--- NOTE | 2020-04-19 12:35 | NUR ---
Patient made it to room and was set up with medications ordered by pharmacy.
--- NOTE | 2020-04-19 12:36 | NUR ---
Patient reported on D5 NS at 50ml/hr patient was on NS on arrival and patient BG was 66, administering a half amp of d50.
[2020-04-19] MEDS: dextrose 5%-water 1,000 ML IV SCH ×2 (12:48→21:00)
--- NOTE | 2020-04-19 12:53 | NUR ---
Patient blood glucose is 112 after blood sugar recheck patient changed to d5w at 100ml/hr
[2020-04-19] MEDS: cefepime 1GM/NS ADD-VANTAGE 100 ML IV SCH (17:15)
--- NOTE | 2020-04-19 17:20 | NUR ---
TF Consult: Pt admit w/ hx TBI and PEG for nutrition needs DX UTI and N/V VICE PRESIDENT FIXED INCOME per EMR. Family reports pt vomits TF and foams at mouth after feeds per EMR though has hx underfeeding compared to Rx from [facility]. Pt has also tolerated all prior bolus feeds w/ GRV WNL prior admits in February this year and November last year. Hx receiving 400ml free water w/ each bolus feed QID and only 150ml tube feed first two feeds and 250ml last two feeds of the day at home reported prior admit February. -675kcals/day less than [facility] Rx. In addition, pt seen in ER 04/15 VICE PRESIDENT FIXED INCOME and advised by PA to decrease TF to 4 cans/day from 5 prior and not adjust free water per EMR; increasing risk of further malnutrition. RN today reports pt has constant foam at mouth especially when agitated; possibly oral secretions and not tube feed. Latest bed scale wt taken by RN today 48.6kg though bed scale not tared so likely stable wt since prior admit February; still severely cachectic w/ visible muscle/fat wasting. Ht updated per RN today as well; 72in making current BMI 14.5. Given pt chronic emaciated status meeting severe malnutrition criteria at this time; notified. RD left message w/ CM regarding pt nutrition status and home EN hx VICE PRESIDENT FIXED INCOME. Bolus PEG recs below given pt tolerance all prior admits w/ GRV WNL. Will continue to monitor for PEG bolus feeds tolerance and additional hydration needs this admit. Rec: 1) Bolus PEG feeds using one can of TwoCal HN(237ml) 5x daily at 8AM, 11AM, 2PM, 5PM, and 8PM. Initiate at 150ml bolus and advance 50ml per bolus to goal of 237ml per bolus(one can). 2) additional water flush 80ml before and after each bolus 3) PALB Q /; daily wts 4) routine bowel care 5) monitor for EN tolerance and additional hydration needs pending further labs Addendum: 04/19/20 at [address] Amended: Links added. Addendum: 04/19/20 at [address] Rec: 1) Bolus PEG feeds using one can of TwoCal HN(237ml) 5x daily at 8AM, 11AM, 2PM, 5PM, and 8PM. Initiate at 150ml bolus and advance 50ml per bolus to goal of 237ml per bolus(one can). To provide 1185ml fluid, 2370 kcals, 830ml water, and 99g protein. 2) additional water flush 80ml before and after each bolus 3) PALB Q /; daily wts 4) routine bowel care 5) monitor for EN tolerance and additional hydration needs pending further labs
--- NOTE | 2020-04-19 18:14 | NUR ---
Problems reprioritized. Patient report given, questions answered & plan of care reviewed with Maryann DOW.
--- NOTE | 2020-04-19 19:00 | NUR ---
Bolus tube feeding started tonight @1900. Residual checked before hand was 20ml. Bolus feeding of 150ml of Two Dago HN given With a total of 160ml of free water. Patient HOB >30 at all times. Restraints assess, release, and circulation check.
[2020-04-19] MEDS: heparin, porcine 5000 units/ml vial SQ SCH (19:45)
[2020-04-19 20:00] VITALS: BP 141/99
[2020-04-19] MEDS: HYDROmorphone inj. 0.5 MG/0.5 ML DISP.SYRIN IV PRN (21:01)
[2020-04-20] VITALS: BP 128/97
[2020-04-20] MEDS: cefepime 1GM/NS ADD-VANTAGE 100 ML IV SCH (00:10)
[2020-04-20] MEDS: normal saline 1000ml 1,000 ML IV SCH ×2 (00:47→15:05)
--- NOTE | 2020-04-20 01:00 | NUR ---
Residual Check at 2230-350ml. Patient restless and irritable. Feeding @2200 held. Pain medication given patient hollering and moaning all night. Residual recheck @0030-300ml. Reglan administer to help with motility and some free water administer.
[2020-04-20] MEDS: HYDROmorphone inj. 0.5 MG/0.5 ML DISP.SYRIN IV PRN (01:21)
[2020-04-20 05:28] LABS: ALANINE AMINOTRANSFERASE 24 U/L (12-78); ALBUMIN 2.9 G/DL (3.4-5.0); ALBUMIN/GLOBULIN RATIO 0.7 (1.1-1.5); ALKALINE PHOSPHATASE 152 IU/L (46-116); ANION GAP 6 (8-16); ASPARTATE AMINO TRANSFERASE 24 U/L (10-37); BASOPHILS % (AUTO) 0.5 % (0-1); BILIRUBIN,TOTAL 0.4 MG/DL (0.1-1.0); BLOOD UREA NITROGEN 13 MG/DL (7-18); BUN/CREATININE RATIO 15.9 (5.4-32.0); CALCIUM 8.5 MG/DL (8.5-10.1); CHLORIDE 98 MMOL/L (99-107); CREATININE 0.82 MG/DL (0.60-1.10); EOSINOPHILS # (AUTO) 0.3 X10'3 (0-0.9); EOSINOPHILS % (AUTO) 3.8 % (0-6); GLUCOSE 119 MG/DL (70-104); HEMOGLOBIN 12.9 g/dl (14.0-17.9); LYMPHOCYTES % (AUTO) 15.2 % (21-51); MAGNESIUM 1.7 MG/DL (1.5-2.4); MEAN CORPUSCULAR HEMOGLOBIN 26.5 PG (27.0-31.0); MEAN CORPUSCULAR HGB CONC 32.3 g/dL (33.0-36.5); MEAN CORPUSCULAR VOLUME 82.2 FL (78-98); MEAN PLATELET VOLUME 9.4 FL (7.4-10.4); MONOCYTES # (AUTO) 0.6 X10'3 (0-0.9); NEUTROPHILS # (AUTO) 4.8 X10'3 (1.8-7.7); NEUTROPHILS % (AUTO) 71.5 % (42-75); PHOSPHORUS 3.1 MG/DL (2.3-4.5); PLATELET COUNT 189 X10'3 (140-440); POTASSIUM 4.2 MMOL/L (3.5-5.1); PREALBUMIN 14.8 MG/DL (19-36); RED BLOOD COUNT 4.86 X10'6 (4.70-6.10); SODIUM 131 MMOL/L (135-145); TOTAL CARBON DIOXIDE 26.6 MMOL/L (24-32); TOTAL PROTEIN 6.8 G/DL (6.4-8.2); WHITE BLOOD COUNT 6.7 X10'3 (4.5-11.0); eGFR > 90 ML/MIN
--- NOTE | 2020-04-20 06:00 | NUR ---
Problems reprioritized. Patient report given, questions answered & plan of care reviewed with Carolyn DOW.
--- NOTE | 2020-04-20 06:00 | NUR ---
Residual check this morning-110ml @0530 Feeding started and increase according to MD orders @200ml of Two Dago HN. Free water of 160ml administer. Patient tolerating feeding well. Currently sleeping and resting comfortable.
--- NOTE | 2020-04-20 07:01 | NUR ---
Patient in room [facility] 346. I have received report from Maryann DOW and had the opportunity to ask questions and assume patient care.
[2020-04-20 08:00] VITALS: BP 102/57
[2020-04-20] MEDS: cefepime inj. 1 GM in normal saline 100ml IV soln 100 ML IV SCH ×2 (08:25→17:45)
[2020-04-20] MEDS: heparin, porcine 5000 units/ml vial SQ SCH ×2 (08:25→19:21)
[2020-04-20] MEDS: metroNIDAZOLE-Flagyl 500mg/NS 100 ML IV SCH ×2 (09:38→18:31)
[2020-04-20] MEDS: dextrose 5%-water 1,000 ML IV SCH ×2 (09:38→18:30)
[2020-04-20 11:00] VITALS: BP 96/50
[2020-04-20] MEDS ORDERED: acetaminophen 325mg tablet PO PRN (14:30)
[2020-04-20] MEDS: traMADol 50MG tablet PO PRN (14:51)
[2020-04-20 15:01] VITALS: BP 131/96
--- NOTE | 2020-04-20 18:27 | NUR ---
Problems reprioritized. Patient report given, questions answered & plan of care reviewed with Jorge DOW.
[2020-04-20] MEDS: acetaminophen 325mg tablet PEG PRN (19:20)
[2020-04-20] MEDS: docusate sodium 100mg/10ml UD cup PO SCH (19:20)
[2020-04-20 19:27] VITALS: BP 146/82
[2020-04-21] VITALS: BP 132/78
[2020-04-21] MEDS: cefepime inj. 1 GM in normal saline 100ml IV soln 100 ML IV SCH ×3 (00:10→16:11)
[2020-04-21] MEDS: metroNIDAZOLE-Flagyl 500mg/NS 100 ML IV SCH ×3 (01:17→16:17)
[2020-04-21] MEDS: dextrose 5%-water 1,000 ML IV SCH ×2 (05:05→14:30)
[2020-04-21 05:14] LABS: ALANINE AMINOTRANSFERASE 25 U/L (12-78); ALBUMIN 2.7 G/DL (3.4-5.0); ALBUMIN/GLOBULIN RATIO 0.7 (1.1-1.5); ALKALINE PHOSPHATASE 133 IU/L (46-116); ANION GAP 4 (8-16); ASPARTATE AMINO TRANSFERASE 19 U/L (10-37); BILIRUBIN,TOTAL 0.4 MG/DL (0.1-1.0); BLOOD UREA NITROGEN 15 MG/DL (7-18); BUN/CREATININE RATIO 15.8 (5.4-32.0); CALCIUM 7.9 MG/DL (8.5-10.1); CHLORIDE 95 MMOL/L (99-107); CREATININE 0.95 MG/DL (0.60-1.10); GLUCOSE 116 MG/DL (70-104); MAGNESIUM 1.7 MG/DL (1.5-2.4); PHOSPHORUS 2.3 MG/DL (2.3-4.5); POTASSIUM 4.3 MMOL/L (3.5-5.1); SODIUM 126 MMOL/L (135-145); TOTAL CARBON DIOXIDE 27.3 MMOL/L (24-32); TOTAL PROTEIN 6.5 G/DL (6.4-8.2); eGFR 81 ML/MIN
[2020-04-21 05:16] LABS: BASOPHILS % (AUTO) 0.2 % (0-1); EOSINOPHILS # (AUTO) 0.1 X10'3 (0-0.9); EOSINOPHILS % (AUTO) 1.7 % (0-6); HEMATOCRIT 37.7 % (42.0-52.0); HEMOGLOBIN 12.5 g/dl (14.0-17.9); LYMPHOCYTES # (AUTO) 0.5 X10'3 (1.1-4.8); LYMPHOCYTES % (AUTO) 7.9 % (21-51); MEAN CORPUSCULAR HEMOGLOBIN 26.8 PG (27.0-31.0); MEAN CORPUSCULAR HGB CONC 33.1 g/dL (33.0-36.5); MEAN CORPUSCULAR VOLUME 80.8 FL (78-98); MEAN PLATELET VOLUME 9.1 FL (7.4-10.4); MONOCYTES # (AUTO) 0.5 X10'3 (0-0.9); MONOCYTES % (AUTO) 7.9 % (2-12); NEUTROPHILS % (AUTO) 82.3 % (42-75); PLATELET COUNT 161 X10'3 (140-440); RED BLOOD COUNT 4.67 X10'6 (4.70-6.10); RED CELL DISTRIBUTION WIDTH 15.5 % (11.5-14.5); WHITE BLOOD COUNT 6.1 X10'3 (4.5-11.0)
[2020-04-21] MEDS: normal saline 1000ml 1,000 ML IV SCH ×2 (05:23→19:41)
--- NOTE | 2020-04-21 06:30 | NUR ---
Patient in room [facility] 346. I have received report from Jorge DOW and had the opportunity to ask questions and assume patient care.
--- NOTE | 2020-04-21 07:04 | NUR ---
Spoke to Jorge DOW NOC nurse, he skipped pt's feeding at 0400 d/t residual been 225ml. Charge aware.
[2020-04-21 08:00] VITALS: BP 108/59
[2020-04-21] MEDS: docusate sodium 100mg/10ml UD cup PO SCH ×2 (08:14→21:03)
[2020-04-21] MEDS: heparin, porcine 5000 units/ml vial SQ SCH ×2 (08:14→21:03)
[2020-04-21 11:00] VITALS: BP 103/60
--- NOTE | 2020-04-21 15:51 | NUR ---
Patient is non verbal
--- NOTE | 2020-04-21 18:07 | NUR ---
Student documentation: I have reviewed all interventions, assessments performed and documented by [facility] student.
[2020-04-21 20:00] VITALS: BP 103/57
[2020-04-21] MEDS: lactobacillus rhamnosus 10,000 MMU CELLS/CAPSULE PO SCH (21:03)
[2020-04-22] VITALS: BP 97/74
[2020-04-22] MEDS: metroNIDAZOLE-Flagyl 500mg/NS 100 ML IV SCH ×3 (00:16→16:41)
[2020-04-22] MEDS: cefepime inj. 1 GM in normal saline 100ml IV soln 100 ML IV SCH ×3 (00:24→18:07)
[2020-04-22] MEDS: dextrose 5%-water 1,000 ML IV SCH ×2 (00:30→08:27)
[2020-04-22 05:19] LABS: BASOPHILS % (AUTO) 0.4 % (0-1); EOSINOPHILS # (AUTO) 0.2 X10'3 (0-0.9); EOSINOPHILS % (AUTO) 2.9 % (0-6); HEMATOCRIT 36.2 % (42.0-52.0); HEMOGLOBIN 11.7 g/dl (14.0-17.9); LYMPHOCYTES # (AUTO) 0.6 X10'3 (1.1-4.8); LYMPHOCYTES % (AUTO) 9.9 % (21-51); MEAN CORPUSCULAR HEMOGLOBIN 26.3 PG (27.0-31.0); MEAN CORPUSCULAR HGB CONC 32.4 g/dL (33.0-36.5); MEAN CORPUSCULAR VOLUME 81.3 FL (78-98); MEAN PLATELET VOLUME 9.2 FL (7.4-10.4); MONOCYTES # (AUTO) 0.5 X10'3 (0-0.9); MONOCYTES % (AUTO) 9.3 % (2-12); NEUTROPHILS # (AUTO) 4.5 X10'3 (1.8-7.7); NEUTROPHILS % (AUTO) 77.5 % (42-75); PLATELET COUNT 176 X10'3 (140-440); RED BLOOD COUNT 4.45 X10'6 (4.70-6.10); RED CELL DISTRIBUTION WIDTH 15.5 % (11.5-14.5); WHITE BLOOD COUNT 5.8 X10'3 (4.5-11.0)
[2020-04-22 06:22] LABS: ALANINE AMINOTRANSFERASE 22 U/L (12-78); ALBUMIN 2.4 G/DL (3.4-5.0); ALBUMIN/GLOBULIN RATIO 0.6 (1.1-1.5); ALKALINE PHOSPHATASE 121 IU/L (46-116); ANION GAP 13 (8-16); ASPARTATE AMINO TRANSFERASE 24 U/L (10-37); BILIRUBIN,TOTAL 0.3 MG/DL (0.1-1.0); BLOOD UREA NITROGEN 15 MG/DL (7-18); BUN/CREATININE RATIO 16.9 (5.4-32.0); CALCIUM 8.5 MG/DL (8.5-10.1); CHLORIDE 99 MMOL/L (99-107); CREATININE 0.89 MG/DL (0.60-1.10); GLUCOSE 126 MG/DL (70-104); MAGNESIUM 1.9 MG/DL (1.5-2.4); PHOSPHORUS 2.4 MG/DL (2.3-4.5); POTASSIUM 4.2 MMOL/L (3.5-5.1); SODIUM 133 MMOL/L (135-145); TOTAL PROTEIN 6.6 G/DL (6.4-8.2); eGFR 88 ML/MIN
[2020-04-22 07:00] VITALS: BP 92/51
[2020-04-22] MEDS: docusate sodium 100mg/10ml UD cup PO SCH ×2 (08:26→21:25)
[2020-04-22] MEDS: lactobacillus rhamnosus 10,000 MMU CELLS/CAPSULE PO SCH ×2 (08:26→21:30)
[2020-04-22] MEDS: heparin, porcine 5000 units/ml vial SQ SCH ×2 (08:27→21:32)
[2020-04-22] MEDS: HYDROmorphone inj. 0.5 MG/0.5 ML DISP.SYRIN IV PRN (08:29)
[2020-04-22] MEDS: normal saline 1000ml 1,000 ML IV SCH ×2 (09:59→11:15)
[2020-04-22 11:00] VITALS: BP 124/83
[2020-04-22 12:00] VITALS: BP 102/50
--- NOTE | 2020-04-22 12:48 | NUR ---
Consult re: less fluids more sugar. Sodium 133. Spoke with bedside RN regarding 5% IV dextrose being stopped and MD consulting for any possible increase in carbohydrates in formula, RD discussed that Twocal HN is the highest concentration formula available and when given boluses at goal rate should provide enough carbohydrates to meet needs. RN reports patient is tolerating feedings, gastric residuals are normal; RD clarified that residual checks should occur before, not after, each bolus feeding. Pt receiving reglan to assist in gastric emptying, receiving bowel care, last BM 04/18. Accuchecks ranging between 100-149 mg/dl. Will continue to follow. Rec: 1) Bolus PEG feeds using one can of TwoCal HN(237ml) 5x daily at 8AM, 11AM, 2PM, 5PM, and 8PM. Initiate at 150ml bolus and advance 50ml per bolus to goal of 237ml per bolus(one can). To provide 1185ml fluid, 2370 kcals, 830ml water, and 99g protein. 2) additional water flush 80ml before and after each bolus 3) PALB Q /; daily wts 4) routine bowel care 5) monitor for EN tolerance and additional hydration needs Addendum: 04/22/20 at [address] Amended: Links added.
[2020-04-22] MEDS ORDERED: lactulose 20gm/30ml cup PEG SCH (13:00)
[2020-04-22] MEDS ORDERED: metoclopramide 10mg/10 ml UD oral solution PEG SCH (14:00)
[2020-04-22] MEDS ORDERED: metoclopramide 10mg/10 ml UD oral solution PEG ONE ×2 (14:30→15:43)
[2020-04-22] MEDS: acetaminophen 325mg tablet PEG PRN (16:41)
--- NOTE | 2020-04-22 18:25 | NUR ---
GAVE REPORT TO FLY DOW.
--- NOTE | 2020-04-22 18:53 | NUR ---
I have received report from VICTOR M Amaro and had the opportunity to ask questions and assume patient care.
--- NOTE | 2020-04-22 18:56 | NUR ---
Patient in room [facility] 346. I have received report from Sondra DOW and had the opportunity to ask questions and assume patient care.
[2020-04-22] MEDS: metoclopramide 10mg/10 ml UD oral solution PEG SCH (21:25)
--- NOTE | 2020-04-22 22:47 | NUR ---
amena had thick residual of 190, feeding held Addendum: 04/22/20 at 2248 by Jeremy Silver RN Amended: Links added.
[2020-04-23] MEDS: cefepime inj. 1 GM in normal saline 100ml IV soln 100 ML IV SCH ×3 (00:35→17:14)
[2020-04-23 00:55] VITALS: BP 100/54
[2020-04-23] MEDS: metroNIDAZOLE-Flagyl 500mg/NS 100 ML IV SCH ×2 (01:22→09:37)
--- NOTE | 2020-04-23 01:41 | NUR ---
Residual of 150 . Held feeding and medications this shift due to high residual. Colace was given 2124 and flushed but the residual came back up the peg tube and was not draining into the gut. Another ditiecian consult has been ordered for today.
[2020-04-23] MEDS: metoclopramide 10mg/10 ml UD oral solution PEG SCH ×4 (02:00→20:25)
[2020-04-23] MEDS ORDERED: normal saline 500ml IV soln 1,000 ML IV SCH (03:00)
[2020-04-23] MEDS: normal saline 1000ml 1,000 ML IV SCH (04:53)
[2020-04-23 05:37] LABS: BASOPHILS % (AUTO) 0.7 % (0-1); EOSINOPHILS # (AUTO) 0.3 X10'3 (0-0.9); EOSINOPHILS % (AUTO) 5.7 % (0-6); HEMATOCRIT 36.4 % (42.0-52.0); LYMPHOCYTES # (AUTO) 0.8 X10'3 (1.1-4.8); LYMPHOCYTES % (AUTO) 17.8 % (21-51); MEAN CORPUSCULAR VOLUME 81.9 FL (78-98); MEAN PLATELET VOLUME 9.1 FL (7.4-10.4); MONOCYTES # (AUTO) 0.5 X10'3 (0-0.9); MONOCYTES % (AUTO) 10.4 % (2-12); NEUTROPHILS % (AUTO) 65.4 % (42-75); PLATELET COUNT 188 X10'3 (140-440); RED BLOOD COUNT 4.45 X10'6 (4.70-6.10); RED CELL DISTRIBUTION WIDTH 16.2 % (11.5-14.5); WHITE BLOOD COUNT 4.6 X10'3 (4.5-11.0)
[2020-04-23 05:42] LABS: ALANINE AMINOTRANSFERASE 25 U/L (12-78); ALBUMIN 2.6 G/DL (3.4-5.0); ALBUMIN/GLOBULIN RATIO 0.7 (1.1-1.5); ALKALINE PHOSPHATASE 133 IU/L (46-116); ANION GAP 8 (8-16); ASPARTATE AMINO TRANSFERASE 27 U/L (10-37); BILIRUBIN,TOTAL 0.2 MG/DL (0.1-1.0); BLOOD UREA NITROGEN 12 MG/DL (7-18); BUN/CREATININE RATIO 19.7 (5.4-32.0); CALCIUM 8.9 MG/DL (8.5-10.1); CHLORIDE 105 MMOL/L (99-107); CREATININE 0.61 MG/DL (0.60-1.10); GLUCOSE 92 MG/DL (70-104); PHOSPHORUS 2.1 MG/DL (2.3-4.5); SODIUM 137 MMOL/L (135-145); TOTAL CARBON DIOXIDE 24.2 MMOL/L (24-32); TOTAL PROTEIN 6.6 G/DL (6.4-8.2); eGFR > 90 ML/MIN
--- NOTE | 2020-04-23 06:43 | NUR ---
Patient in room [facility] 346. I have received report from VICTOR M Luna and had the opportunity to ask questions and assume patient care.
--- NOTE | 2020-04-23 06:51 | NUR ---
Problems reprioritized. Patient report given, questions answered & plan of care reviewed with VICTOR M Cordero.
[2020-04-23 07:00] VITALS: BP 125/63
[2020-04-23] MEDS: lactobacillus rhamnosus 10,000 MMU CELLS/CAPSULE PO SCH ×2 (10:01→20:24)
[2020-04-23] MEDS: docusate sodium 100mg/10ml UD cup PO SCH ×2 (10:01→20:00)
[2020-04-23] MEDS: heparin, porcine 5000 units/ml vial SQ SCH ×2 (10:02→20:26)
[2020-04-23 11:00] VITALS: BP 103/70
[2020-04-23] MEDS: metroNIDAZOLE 500mg tablet PO SCH (17:13)
--- NOTE | 2020-04-23 18:28 | NUR ---
Received report from primary care nurse Consuelo DOW. Assumed patient care. Patient is awake and moaning kicking his legs out. On room air. In no apparent distress. Bed alarms on and audible.
--- NOTE | 2020-04-23 18:28 | NUR ---
Problems reprioritized. Patient report given, questions answered & plan of care reviewed with VICTOR M Paul.
[2020-04-23 19:00] VITALS: BP 111/59
[2020-04-23] MEDS: traMADol 50MG tablet PO PRN (20:24)
[2020-04-24] MEDS: normal saline 1000ml 1,000 ML IV SCH ×2 (00:08→20:36)
[2020-04-24] MEDS: cefepime inj. 1 GM in normal saline 100ml IV soln 100 ML IV SCH ×3 (00:08→16:47)
[2020-04-24] MEDS: metroNIDAZOLE 500mg tablet PO SCH ×3 (00:09→16:47)
[2020-04-24 00:18] VITALS: BP 139/88
[2020-04-24] MEDS: metoclopramide 10mg/10 ml UD oral solution PEG SCH ×4 (02:25→20:33)
[2020-04-24 06:17] LABS: BASOPHILS # (AUTO) 0.1 X10'3 (0-0.2); BASOPHILS % (AUTO) 0.9 % (0-1); EOSINOPHILS # (AUTO) 0.4 X10'3 (0-0.9); EOSINOPHILS % (AUTO) 7.2 % (0-6); HEMATOCRIT 35.7 % (42.0-52.0); HEMOGLOBIN 11.5 g/dl (14.0-17.9); LYMPHOCYTES # (AUTO) 1.1 X10'3 (1.1-4.8); MEAN CORPUSCULAR HEMOGLOBIN 26.3 PG (27.0-31.0); MEAN CORPUSCULAR HGB CONC 32.3 g/dL (33.0-36.5); MEAN CORPUSCULAR VOLUME 81.6 FL (78-98); MEAN PLATELET VOLUME 8.6 FL (7.4-10.4); MONOCYTES # (AUTO) 0.6 X10'3 (0-0.9); MONOCYTES % (AUTO) 9.6 % (2-12); NEUTROPHILS # (AUTO) 3.9 X10'3 (1.8-7.7); NEUTROPHILS % (AUTO) 64.3 % (42-75); PLATELET COUNT 217 X10'3 (140-440); RED BLOOD COUNT 4.38 X10'6 (4.70-6.10); RED CELL DISTRIBUTION WIDTH 16.4 % (11.5-14.5); WHITE BLOOD COUNT 6.1 X10'3 (4.5-11.0)
--- NOTE | 2020-04-24 06:26 | NUR ---
Reported off to Debra DOW. Patient is awake on room air. In no apparent distress. Bed alarms on and audible.
--- NOTE | 2020-04-24 06:36 | NUR ---
Patient in room [facility] 346. I have received report from VICTOR M Paul and had the opportunity to ask questions and assume patient care.
--- NOTE | 2020-04-24 06:37 | NUR ---
Patient in room [facility] 346. I have received report from Beverly DOW and had the opportunity to ask questions and assume patient care.
[2020-04-24 07:00] VITALS: BP 110/63
[2020-04-24 07:02] LABS: ALANINE AMINOTRANSFERASE 26 U/L (12-78); ALBUMIN 2.4 G/DL (3.4-5.0); ALBUMIN/GLOBULIN RATIO 0.6 (1.1-1.5); ALKALINE PHOSPHATASE 126 IU/L (46-116); ANION GAP 8 (8-16); ASPARTATE AMINO TRANSFERASE 27 U/L (10-37); BILIRUBIN,TOTAL 0.2 MG/DL (0.1-1.0); BLOOD UREA NITROGEN 13 MG/DL (7-18); CALCIUM 8.4 MG/DL (8.5-10.1); CHLORIDE 104 MMOL/L (99-107); CREATININE 0.62 MG/DL (0.60-1.10); GLUCOSE 89 MG/DL (70-104); MAGNESIUM 1.7 MG/DL (1.5-2.4); PHOSPHORUS 2.3 MG/DL (2.3-4.5); POTASSIUM 4.3 MMOL/L (3.5-5.1); SODIUM 138 MMOL/L (135-145); TOTAL CARBON DIOXIDE 25.7 MMOL/L (24-32); TOTAL PROTEIN 6.2 G/DL (6.4-8.2); eGFR > 90 ML/MIN
[2020-04-24] MEDS: lactobacillus rhamnosus 10,000 MMU CELLS/CAPSULE PO SCH ×2 (08:26→20:35)
[2020-04-24] MEDS: docusate sodium 100mg/10ml UD cup PO SCH ×2 (08:26→20:00)
[2020-04-24] MEDS: heparin, porcine 5000 units/ml vial SQ SCH ×2 (08:27→20:34)
[2020-04-24 11:36] VITALS: BP 93/58
--- NOTE | 2020-04-24 11:54 | NUR ---
Student documentation: I have reviewed all interventions, assessments performed and documented by Suha PARTIDA for [facility]. Student Medication Administration: For all medication-pass' in the time frame of 0922-0107, all medications were reviewed, dispensed, administered and documented per hospital policy by Suha PARTIDA for [facility].
--- NOTE | 2020-04-24 12:17 | NUR ---
Follow up: Today patient is tolerating bolus tube feedings with reglan. Gastric residuals are within a normal range prior to next bolus feedings, all under 100 ml today. Reasonable for gastric residuals to be around 150-200 ml prior to next bolus considering both salivary and gastric secretions. Prior, patient was having higher gastric residuals 250-350 ml. Discussed alternative feeding methods with both Physician and Pedodontist. CM states she is doubtful in patient's insurance covering the use of a feeding pump and it seems pt is tolerating all feedings so far today. Discussed with CM and Physician that another alternative could be gravity tube feedings that would allow less frequent, higher volume feedings that could be given over the course of an hour. There is concern with care home reglan and possible neurological side effects. CM attempting to discuss care with family, patient's caregivers. Currently using highest concentration formula, providing 2 aaliyah/ml. Will continue discussing plan of care with CM, Bedside RNs, and Physician. Rec: 1) Bolus PEG feeds using one can of TwoCal HN(237ml) 5x daily at 8AM, 11AM, 2PM, 5PM, and 8PM. Initiate at 150ml bolus and advance 50ml per bolus to goal of 237ml per bolus(one can). To provide 1185ml fluid, 2370 kcals, 830ml water, and 99g protein. 2) additional water flush 80ml before and after each bolus 3) PALB Q /; daily wts 4) routine bowel care 5) monitor for EN tolerance and additional hydration needs 6) Today patient is tolerating bolus feedings well with reglan. If family is agreeable to try gravity feedings versus bolus will trial gravity feeds during patient's hospital stay. Addendum: 04/24/20 at [address] Amended: Links added.
--- NOTE | 2020-04-24 17:59 | NUR ---
Problems reprioritized. Patient report given, questions answered & plan of care reviewed with VICTOR M Paul.
--- NOTE | 2020-04-24 17:59 | NUR ---
Problems reprioritized. Patient report given, questions answered & plan of care reviewed with Beverly DOW.
--- NOTE | 2020-04-24 18:30 | NUR ---
Received report from primary care nurse Martinez DOW. Assumed patient care. Patient is resting with eyes closed and moaning. On room air. In no apparent distress. Bed alarms on and audible
[2020-04-24 19:00] VITALS: BP 131/73
[2020-04-24] MEDS: traMADol 50MG tablet PO PRN (20:35)
[2020-04-25] VITALS: BP 120/81
[2020-04-25] MEDS: metroNIDAZOLE 500mg tablet PO SCH ×2 (00:25→08:33)
[2020-04-25] MEDS: cefepime inj. 1 GM in normal saline 100ml IV soln 100 ML IV SCH ×2 (00:25→08:33)
[2020-04-25] MEDS: metoclopramide 10mg/10 ml UD oral solution PEG SCH ×3 (02:03→14:28)
[2020-04-25 06:30] VITALS: BP 120/69
--- NOTE | 2020-04-25 06:40 | NUR ---
Patient in room [facility] 346. I have received report from VICTOR M Paul and had the opportunity to ask questions and assume patient care.
[2020-04-25] MEDS: docusate sodium 100mg/10ml UD cup PO SCH (08:33)
[2020-04-25] MEDS: lactobacillus rhamnosus 10,000 MMU CELLS/CAPSULE PO SCH (08:33)
[2020-04-25] MEDS: heparin, porcine 5000 units/ml vial SQ SCH (08:34)
[2020-04-25] MEDS ORDERED: TRAM50TA2 PO (09:54)
[2020-04-25] MEDS ORDERED: REG10L PEG (09:54)
[2020-04-25] MEDS ORDERED: LACT1CAP26 PEG (09:54)
[2020-04-25] MEDS ORDERED: DOCU50LI22 PO (09:54)
[2020-04-25 11:00] VITALS: BP 120/86
--- NOTE | 2020-04-25 17:45 | NUR ---
DC inst provided to pt's brother & ydebra-ms-tps, Hans & Mary, whom are pt's conservators. IV DC'd, tip intact. All belongings sent w/pt. Pt put in his own WC by Lori & then brought to their WC van by Lori.
== END 2020-04-25 17:44 | disposition home health service (06) | DRG 177 ==
LOC: ER 06:30 → ED HOLD 10:29 → SUR 3N 11:47
PROVIDERS: ADMIT Family Medicine; ATTEND Family Medicine
DX: J69.0 Pneumonitis due to inhalation of food and vomit (principal); E43 Unspecified severe protein-calorie malnutrition; N20.2 Calculus of kidney with calculus of ureter; J98.11 Atelectasis; E87.1 Hypo-osmolality and hyponatremia; R64 Cachexia; Z68.1 Body mass index [BMI] 19.9 or less, adult; K21.9 Gastro-esophageal reflux disease without esophagitis; K59.00 Constipation, unspecified; D50.9 Iron deficiency anemia, unspecified; Z51.5 Encounter for palliative care; Z66 Do not resuscitate; Z86.73 Personal history of transient ischemic attack (TIA), and cerebral infarction without residual deficits; Z87.440 Personal history of urinary (tract) infections; Z87.442 Personal history of urinary calculi; Z93.1 Gastrostomy status
CPT/HCPCS: 36415; 71045; 71250; 74176; 76937; 80053; 81001; 82948; 83605; 83690; 83735; 84100; 84134; 84145; 84484; 85025; 87040; 87077; 87081; 87088; 87186; 93005; 96361; 96365; 96366; 96368; 96375; 99285; G0378; J0692; J0696; J1170; J1644; J1885; J2270; J2405; J2765; J3490; J7030; J7042; J7070; J8597

== ENCOUNTER 2020-10-24 10:53 | Emergency (ER) | payer MEDICARE, OTHER, MEDICAID ==
[~2020-10-24] VITALS: Ht 170.2 cm; Wt 40.4 kg
[~2020-10-24 10:53] MED LIST changes: +LACT1CAP26 PEG; +POLY119P2 PO; +TRAM50TA2 GT
[2020-10-24 13:56] LABS: CLARITY,URINE TURBID (Clear); COLOR,URINE STRAW (Yellow); GLUCOSE, URINE NEGATIVE (Neg); KETONES,URINE NEGATIVE (Neg); LEUKOCYTE ESTERASE ,URINE LARGE (Neg); NITRITES, URINE POSITIVE (Neg); OCCULT BLOOD,URINE LARGE (Neg); PH,URINE >=9.0 (4.8-8.0); PROTEIN,URINE 100 mg/dl (Neg)
[2020-10-24 13:58] LABS: UA COLLECTION TYPE FOLEY CATH
[2020-10-24 14:07] LABS: COARSE GRANULAR CAST 0-3 /LPF (NEGATIVE)
[2020-10-24 14:08] LABS: MUCUS STRANDS NONE SEEN /LPF (Neg); SQUAMOUS EPITHELIAL CELL,UR NONE SEEN /LPF (FEW); TRIPLE PHOSPHATE CRYST 1+ /HPF (NEGATIVE); WBC CLUMPS,URINE FEW /HPF (NEGATIVE); WBC,URINE TNTC /HPF (0-4)
[2020-10-24 14:16] LABS: RBC,URINE 50-100 /HPF (0-2)
[2020-10-24 14:17] LABS: AMORPHOUS PHOSPHATES 1+; BACTERIA,URINE 1+ /HPF (Neg)
[2020-10-24] MEDS ORDERED: CefTRIAXone 1000mg IM Kit (w/lidocaine diluent) IM ONE (14:35)
--- NOTE | 2020-10-24 15:00 | NUR ---
PATIENT'S RIGHT EAR FLUSHED WITH WARM TAP WATER. SMALL AMOUNT OF YELLOW EXUDATE AND BLOOD TINGED RETURN OBTAINED. MAYNARD CATHETER CHECKED FOR PLACEMENT AND BALLOON DEFLATED, THEN REINFLATED TO INSURE PROPER PLACEMENT IN THE BLADDER. MODERATE AMOUNT OF DARK YELLOW URINE NOTED IN TUBING AND MAYNARD BAG.
[2020-10-24] MEDS ORDERED: AMOX500C2 PO (15:10)
[2020-10-24] MEDS ORDERED: CIPR-259 PO (15:10)
[2020-10-24 16:13] VITALS: BP 118/82
== END 2020-10-24 16:14 | disposition home or self-care (01) ==
LOC: ER 10:54
DX: T83.518A Infection and inflammatory reaction due to other urinary catheter, initial encounter (principal); N39.0 Urinary tract infection, site not specified; H72.91 Unspecified perforation of tympanic membrane, right ear; H66.91 Otitis media, unspecified, right ear; K21.9 Gastro-esophageal reflux disease without esophagitis; Z87.440 Personal history of urinary (tract) infections; Z98.890 Other specified postprocedural states; Z86.73 Personal history of transient ischemic attack (TIA), and cerebral infarction without residual deficits; Z87.442 Personal history of urinary calculi; Y84.6 Urinary catheterization as the cause of abnormal reaction of the patient, or of later complication, without mention of misadventure at the time of the procedure; Y92.89 Other specified places as the place of occurrence of the external cause
CPT/HCPCS: 81001; 87088; 96372; 99284; J0696; 87077; 87186

== ENCOUNTER 2020-12-15 22:49 | Emergency (ER) | payer MEDICARE, MEDICAID ==
[~2020-12-15] VITALS: Ht 177.8 cm; Wt 56.8 kg
[2020-12-15] MEDS ORDERED: normal saline 1000ML IV soln IV ONE (23:10)
[2020-12-15] MEDS ORDERED: CefTRIAXone 2gm/D5W 50ml BAG 50 ML IV ONE (23:10)
[2020-12-15] MEDS ORDERED: LIDOcaine 2% 10ml TOPICAL JELLY (Urojet) TP ONE (23:10)
[2020-12-15 23:49] LABS: BASOPHILS # (AUTO) 0.1 X10'3 (0-0.2); BASOPHILS % (AUTO) 0.7 % (0-1); EOSINOPHILS # (AUTO) 0.1 X10'3 (0-0.9); EOSINOPHILS % (AUTO) 0.6 % (0-6); HEMOGLOBIN 12.9 g/dl (14.0-17.9); LYMPHOCYTES # (AUTO) 0.7 X10'3 (1.1-4.8); LYMPHOCYTES % (AUTO) 7.3 % (21-51); MEAN CORPUSCULAR HEMOGLOBIN 25.5 PG (27.0-31.0); MEAN CORPUSCULAR HGB CONC 32.2 g/dL (33.0-36.5); MEAN PLATELET VOLUME 8.8 FL (7.4-10.4); MONOCYTES # (AUTO) 0.9 X10'3 (0-0.9); MONOCYTES % (AUTO) 8.6 % (2-12); NEUTROPHILS # (AUTO) 8.4 X10'3 (1.8-7.7); NEUTROPHILS % (AUTO) 82.8 % (42-75); PLATELET COUNT 264 X10'3 (140-440); RED BLOOD COUNT 5.07 X10'6 (4.70-6.10); RED CELL DISTRIBUTION WIDTH 14.7 % (11.5-14.5); WHITE BLOOD COUNT 10.1 X10'3 (4.5-11.0)
[2020-12-16 00:02] LABS: CLARITY,URINE CLOUDY (Clear); GLUCOSE, URINE NEGATIVE (Neg); KETONES,URINE NEGATIVE (Neg); LEUKOCYTE ESTERASE ,URINE MODERATE (Neg); NITRITES, URINE POSITIVE (Neg); OCCULT BLOOD,URINE LARGE (Neg); PROTEIN,URINE 30 mg/dl (Neg)
[2020-12-16 00:03] LABS: ALANINE AMINOTRANSFERASE 38 U/L (12-78); ALBUMIN 3.2 G/DL (3.4-5.0); ALBUMIN/GLOBULIN RATIO 0.7 (1.1-1.5); ALKALINE PHOSPHATASE 333 IU/L (46-116); ANION GAP 18 (8-16); ASPARTATE AMINO TRANSFERASE 29 U/L (10-37); BILIRUBIN,TOTAL 0.4 MG/DL (0.1-1.0); BLOOD UREA NITROGEN 24 MG/DL (7-18); BUN/CREATININE RATIO 32.9 (5.4-32.0); CALCIUM 9.4 MG/DL (8.5-10.1); CHLORIDE 98 MMOL/L (99-107); CREATININE 0.73 MG/DL (0.60-1.10); GLUCOSE 124 MG/DL (70-104); MAGNESIUM 2.3 MG/DL (1.5-2.4); POTASSIUM 4.5 MMOL/L (3.5-5.1); SODIUM 141 MMOL/L (135-145); TOTAL CARBON DIOXIDE 25.4 MMOL/L (24-32); TOTAL PROTEIN 7.8 G/DL (6.4-8.2); eGFR > 90 ML/MIN
[2020-12-16 00:08] LABS: COLOR,URINE DARK YELLOW (Yellow); UA COLLECTION TYPE FOLEY CATH
[2020-12-16 00:10] LABS: AMORPHOUS PHOSPHATES 1+; BACTERIA,URINE 3+ /HPF (Neg); MUCUS STRANDS FEW /LPF (Neg); RBC,URINE 50-100 /HPF (0-2); SQUAMOUS EPITHELIAL CELL,UR NONE SEEN /LPF (FEW)
[2020-12-16 00:11] LABS: WBC CLUMPS,URINE FEW /HPF (NEGATIVE)
[2020-12-16] MEDS ORDERED: CIPR250S2 PEG (00:16)
[2020-12-16 01:27] VITALS: BP 116/68
== END 2020-12-16 01:31 | disposition home or self-care (01) ==
LOC: ER 22:50
DX: T83.011A Breakdown (mechanical) of indwelling urethral catheter, initial encounter (principal); N39.0 Urinary tract infection, site not specified; R50.9 Fever, unspecified; K21.9 Gastro-esophageal reflux disease without esophagitis; Z86.73 Personal history of transient ischemic attack (TIA), and cerebral infarction without residual deficits; Z87.442 Personal history of urinary calculi; Z87.440 Personal history of urinary (tract) infections; Z98.890 Other specified postprocedural states; Z88.8 Allergy status to other drugs, medicaments and biological substances; Z79.2 Long term (current) use of antibiotics; Z79.899 Other long term (current) drug therapy; Y73.2 Prosthetic and other implants, materials and accessory gastroenterology and urology devices associated with adverse incidents
CPT/HCPCS: 36415; 51702; 71045; 80053; 81001; 83605; 83735; 84145; 85025; 87040; 87077; 87088; 87186; 96365; 99284; J0696; J7030; 81003

== ENCOUNTER 2021-06-05 15:00 | Inpatient (IN) | payer MEDICARE, MEDICAID ==
[~2021-06-05] VITALS: Ht 188 cm; Wt 56.4 kg
[~2021-06-05 15:00] MED LIST changes: +CIPR250S2 PEG
[2021-06-05] MEDS ORDERED: vancomycin/NS 1 GM ADD-VANTAGE 250 ML IV ONE (15:40)
[2021-06-05] MEDS ORDERED: normal saline 1000ML IV soln IV ONE (15:40)
[2021-06-05 16:15] LABS: BASOPHILS # (AUTO) 0.1 X10'3 (0-0.2); BASOPHILS % (AUTO) 0.6 % (0-1); EOSINOPHILS # (AUTO) 0.1 X10'3 (0-0.9); EOSINOPHILS % (AUTO) 0.4 % (0-6); HEMATOCRIT 45.6 % (42.0-52.0); HEMOGLOBIN 14.8 g/dl (14.0-17.9); LYMPHOCYTES # (AUTO) 0.8 X10'3 (1.1-4.8); LYMPHOCYTES % (AUTO) 5.3 % (21-51); MEAN CORPUSCULAR HEMOGLOBIN 24.9 PG (27.0-31.0); MEAN CORPUSCULAR HGB CONC 32.3 g/dL (33.0-36.5); MEAN CORPUSCULAR VOLUME 77.1 FL (78-98); MEAN PLATELET VOLUME 8.6 FL (7.4-10.4); MONOCYTES # (AUTO) 0.5 X10'3 (0-0.9); MONOCYTES % (AUTO) 3.4 % (2-12); NEUTROPHILS # (AUTO) 14.5 X10'3 (1.8-7.7); NEUTROPHILS % (AUTO) 90.3 % (42-75); PLATELET COUNT 313 X10'3 (140-440); RED BLOOD COUNT 5.92 X10'6 (4.70-6.10); RED CELL DISTRIBUTION WIDTH 16.1 % (11.5-14.5)
[2021-06-05 16:19] LABS: CLARITY,URINE CLOUDY (Clear); COLOR,URINE DARK YELLOW (Yellow); GLUCOSE, URINE NEGATIVE (Neg); KETONES,URINE NEGATIVE (Neg); NITRITES, URINE NEGATIVE (Neg); OCCULT BLOOD,URINE SMALL (Neg); PH,URINE 8.5 (4.8-8.0); PROTEIN,URINE 30 mg/dl (Neg); UA COLLECTION TYPE FOLEY CATH
[2021-06-05 16:20] LABS: LEUKOCYTE ESTERASE ,URINE MODERATE (Neg)
[2021-06-05 16:25] LABS: BACTERIA,URINE 4+ /HPF (Neg); WBC,URINE 20-30 /HPF (0-4)
[2021-06-05 16:26] LABS: MUCUS STRANDS NONE SEEN /LPF (Neg); SQUAMOUS EPITHELIAL CELL,UR NONE SEEN /LPF (FEW); TRIPLE PHOSPHATE CRYST 1+ /HPF (NEGATIVE); WBC CLUMPS,URINE FEW /HPF (NEGATIVE)
[2021-06-05 16:28] LABS: ALANINE AMINOTRANSFERASE 28 U/L (12-78); ALBUMIN/GLOBULIN RATIO 0.6 (1.1-1.5); ALKALINE PHOSPHATASE 215 IU/L (46-116); ANION GAP 14 (8-16); ASPARTATE AMINO TRANSFERASE 36 U/L (10-37); BILIRUBIN,TOTAL 0.8 MG/DL (0.1-1.0); BLOOD UREA NITROGEN 21 MG/DL (7-18); BUN/CREATININE RATIO 30.9 (5.4-32.0); CALCIUM 9.2 MG/DL (8.5-10.1); CHLORIDE 95 MMOL/L (99-107); CREATININE 0.68 MG/DL (0.60-1.10); GLUCOSE 127 MG/DL (70-104); MAGNESIUM 2.5 MG/DL (1.5-2.4); POTASSIUM 4.7 MMOL/L (3.5-5.1); SODIUM 134 MMOL/L (135-145); TOTAL CARBON DIOXIDE 25.1 MMOL/L (24-32); TOTAL PROTEIN 8.4 G/DL (6.4-8.2); eGFR > 90 ML/MIN
[2021-06-05 16:38] LABS: ANISOCYTOSIS 1+; HYPOCHROMASIA 1+; MICROCYTOSIS 1+; PLATELET ESTIMATE NORMAL; TOTAL CELLS COUNTED 100
[2021-06-05 16:40] LABS: TOXIC GRANULATION 1+
[2021-06-05] MEDS: dextrose 5%-1/2 normal saline 1,000 ML IV SCH (17:40)
[2021-06-05] MEDS ORDERED: morphine 2 MG/ML inj. syringe IV PRN ×2 (17:40)
[2021-06-05] MEDS ORDERED: acetaminophen 325mg tablet PO PRN ×2 (17:40)
[2021-06-05] MEDS ORDERED: magnesium hydroxide 30ml (MOM) UD suspension PO PRN (17:40)
[2021-06-05] MEDS ORDERED: mag hydrox/Alum hydrox/simeth 30ml oral suspension PO PRN (17:40)
[2021-06-05] MEDS ORDERED: ondansetron/PF 4mg/2ml inj IV PRN (17:40)
--- NOTE | 2021-06-05 17:49 | NUR ---
CONTACT #s FOR CARE TAKERS:ANDI; [phone] MELA; [phone]
[2021-06-05] MEDS: cefepime 1GM/NS ADD-VANTAGE 100 ML IV SCH (19:50)
[2021-06-05] MEDS: docusate sod 100mg capsule PO SCH (20:00)
--- NOTE | 2021-06-06 00:49 | NUR ---
FRESH MAYNARD CATHETER PLACED WITH URINE OUTPUT AFTER BLADDER SCAN SHOWED 389 ML OF URINE AND ATTEMPT TO FLUSH CURRENT CATHETER FAILED.
[2021-06-06] MEDS: cefepime 1GM/NS ADD-VANTAGE 100 ML IV SCH (03:00)
[2021-06-06] MEDS: dextrose 5%-1/2 normal saline 1,000 ML IV SCH ×2 (03:40→13:52)
[2021-06-06] MEDS ORDERED: CEFEPIME 2gm in D5W 50mL 50 ML IV SCH (06:23)
[2021-06-06] MEDS: docusate sod 100mg capsule PO SCH ×2 (08:00→19:39)
[2021-06-06 08:22] LABS: BASOPHILS % (AUTO) 0.3 % (0-1); EOSINOPHILS # (AUTO) 0.4 X10'3 (0-0.9); EOSINOPHILS % (AUTO) 3.3 % (0-6); HEMATOCRIT 38.3 % (42.0-52.0); HEMOGLOBIN 12.3 g/dl (14.0-17.9); LYMPHOCYTES # (AUTO) 0.8 X10'3 (1.1-4.8); LYMPHOCYTES % (AUTO) 6.6 % (21-51); MEAN CORPUSCULAR HEMOGLOBIN 24.9 PG (27.0-31.0); MEAN CORPUSCULAR HGB CONC 32.2 g/dL (33.0-36.5); MEAN CORPUSCULAR VOLUME 77.2 FL (78-98); MEAN PLATELET VOLUME 8.7 FL (7.4-10.4); MONOCYTES # (AUTO) 0.4 X10'3 (0-0.9); MONOCYTES % (AUTO) 3.2 % (2-12); NEUTROPHILS # (AUTO) 10.2 X10'3 (1.8-7.7); NEUTROPHILS % (AUTO) 86.6 % (42-75); PLATELET COUNT 222 X10'3 (140-440); RED BLOOD COUNT 4.96 X10'6 (4.70-6.10); RED CELL DISTRIBUTION WIDTH 15.4 % (11.5-14.5); WHITE BLOOD COUNT 11.7 X10'3 (4.5-11.0)
[2021-06-06] MEDS: cefepime 1GM in D5W 50mL 50 ML IV SCH ×2 (08:32→16:51)
--- NOTE | 2021-06-06 08:38 | NUR ---
DR. POON HERE TO SEE PATIENT AND REQUESTED NUTRITION CONSULT FOR G-TUBE FEEDING EVALUATION. ORDER INITIATED.
[2021-06-06 08:54] LABS: ALBUMIN 2.3 G/DL (3.4-5.0); ANION GAP 9 (8-16); BLOOD UREA NITROGEN 13 MG/DL (7-18); BUN/CREATININE RATIO 24.1 (5.4-32.0); CALCIUM 8.3 MG/DL (8.5-10.1); CHLORIDE 103 MMOL/L (99-107); CREATININE 0.54 MG/DL (0.60-1.10); GLUCOSE 113 MG/DL (70-104); SODIUM 135 MMOL/L (135-145); TOTAL CARBON DIOXIDE 23.1 MMOL/L (24-32); eGFR > 90 ML/MIN
--- NOTE | 2021-06-06 10:04 | NUR ---
PT RESTING ON GURNEY IN NO ACUTE DISTRESS.
--- NOTE | 2021-06-06 11:05 | NUR ---
BOTHER AT BEDSIDE TALKING WITH NUTRIENT
--- NOTE | 2021-06-06 12:46 | NUR ---
TF Consult: Pt admit DX UTI, encephalopathy, leukocytosis, sepsis, and lactic acidosis hx TBI G-tube dependent for nutrition at home w/ tube feeds to start today per EMR. RD spoke w/ Hans (patient's brother/caregiver) who reports pt no change from prior reported home bolus feed regimen: bolus four times daily using Nutren 1.5 150 ml bolus w/ 400 ml free water flush at 8:00, 150ml bolus w/ 400 ml water flush at 12:00, 250ml bolus w/ 400 ml water flush at 16:00, and 250ml bolus w/ 400ml water flush at 20:00; providing total volume of 800 ml, 1200 kcal, 54g protein, and 2224ml water/day at home. RD contacted [facility] who reports nutrition Rx 5 cans Nutren 1.5/day; pt receiving 675 kcals/day less than Rx at home. RD d/w Hans who reports pt unable to tolerate 5 cans/day or 5 feeding/day though is agreeable to RD titration of formula/hydration recommendations for current admit and long-term recs as needed. Pt has severe muscle/fat wasting evident to temporal and buccal regions during RD visit though brother Hans reports current wt stable ~124 pounds which is reflected past two years admits in EMR. Hans reports pt always lower wt individual w/ highest at 145 pounds prior to TBI. Wt is stable though stable w/ underfeeding regimen at home; given visible muscle/fat wasting and home TF regimen 64% of Palma recs pt meets severe malnutrition criteria; MD notified. Noted serum Na 135 this AM currently on D5/NS at 100ml/hr likely until nutrition starts; free water recs below accordingly. Will continue to monitor for TF tolerance and adjustment needs as medically indicated. Rec: 1. Bolus GTF using Pivot 1.5 360ml bolus goal 4 times daily at 0800, 1200, 1600, and 2000. To provide 1440ml volume/day, 2160 kcals, 1094water, and 136g protein. Initiate at 150ml bolus and advance 60ml per bolus to goal as tolerated. 2. additional water flush 125ml before and after boluses; monitor serum Na and adjustment needs once Dex weaned following TF initiation 3. PALB Q /; daily wts 4. Once sepsis resolves per MD; Recommend Bolus TF adjustment to TwoCal HN at 296ml bolus goal 4 times daily. Would provide 1184ml volume/day, 2368 kcals, 829ml water, and 99g protein. IF change to TwoCal HN; additional 150ml free water flush before and after feeds (pt tolerates 650ml TF/free water bolus periods at home per Hans brother/caregiver) 4. routine bowel care 5. monitor for TF tolerance and adjustment needs HOME TF RECS: 1. Bolus GTF using TwoCal HN or equivalent 296ml bolus goal 4 times daily at 0800, 1200, 1600, and 2000. Would provide 1184ml volume/day, 2368 kcals, 829ml water, and 99g protein. 2. additional 150ml free water flush before and after feeds (pt tolerates 650ml TF/free water bolus periods at home per Hans brother/caregiver) 3. Outpatient RD to titrate pt TF formula, rate, and free water based on protein, kcal, and hydration needs Addendum: 06/06/21 at [address] Amended: Links added.
[2021-06-06 16:12] LABS: PREALBUMIN 13.1 MG/DL (19-36)
[2021-06-06] MEDS ORDERED: lactobacillus rhamnosus 10,000 MMU CELLS/CAPSULE PO SCH (20:00)
[2021-06-06] MEDS: enoxaparin 40mg/0.4ml syringe SUBCUT SCH (20:57)
[2021-06-07] MEDS: dextrose 5%-1/2 normal saline 1,000 ML IV SCH ×2 (00:18→09:40)
[2021-06-07] MEDS: cefepime 1GM in D5W 50mL 50 ML IV SCH ×2 (00:19→09:39)
[2021-06-07 01:53] LABS: BASOPHILS % (AUTO) 0.7 % (0-1); EOSINOPHILS # (AUTO) 0.4 X10'3 (0-0.9); EOSINOPHILS % (AUTO) 6.2 % (0-6); HEMATOCRIT 38.3 % (42.0-52.0); HEMOGLOBIN 12.3 g/dl (14.0-17.9); LYMPHOCYTES % (AUTO) 15.1 % (21-51); MEAN CORPUSCULAR HGB CONC 32.2 g/dL (33.0-36.5); MEAN CORPUSCULAR VOLUME 77.8 FL (78-98); MEAN PLATELET VOLUME 8.8 FL (7.4-10.4); MONOCYTES # (AUTO) 0.4 X10'3 (0-0.9); MONOCYTES % (AUTO) 5.6 % (2-12); NEUTROPHILS # (AUTO) 4.9 X10'3 (1.8-7.7); NEUTROPHILS % (AUTO) 72.4 % (42-75); PLATELET COUNT 245 X10'3 (140-440); RED BLOOD COUNT 4.92 X10'6 (4.70-6.10); RED CELL DISTRIBUTION WIDTH 15.4 % (11.5-14.5); WHITE BLOOD COUNT 6.8 X10'3 (4.5-11.0)
[2021-06-07 01:59] LABS: ALBUMIN 2.3 G/DL (3.4-5.0); ANION GAP 11 (8-16); BLOOD UREA NITROGEN 13 MG/DL (7-18); BUN/CREATININE RATIO 21.7 (5.4-32.0); CALCIUM 8.3 MG/DL (8.5-10.1); CHLORIDE 104 MMOL/L (99-107); GLUCOSE 78 MG/DL (70-104); POTASSIUM 4.2 MMOL/L (3.5-5.1); SODIUM 140 MMOL/L (135-145); TOTAL CARBON DIOXIDE 24.9 MMOL/L (24-32); eGFR > 90 ML/MIN
--- NOTE | 2021-06-07 02:09 | NUR ---
patient repositied, cleaned and changed by ed bo whalen at 0200.pillows and blankets used for padding to prevent skin breakdown. oral care provided
--- NOTE | 2021-06-07 06:08 | NUR ---
patient was turned and repositioned onto his right side. barrier cream was applied, eye care procided with warm wash cloth. lesion noted on pt left crum, left buttocks, and left elbow. redness and drainage noted in left armpit but unable to access due to patients contractures.
--- NOTE | 2021-06-07 08:27 | NUR ---
started tube feeding, 10cc residual at 0700
[2021-06-07] MEDS ORDERED: hydrALAZINE 20mg/ml inj. IV PRN (08:35)
[2021-06-07] MEDS ORDERED: docusate sodium 100mg/10ml UD cup NG SCH (09:07)
--- NOTE | 2021-06-07 09:08 | NUR ---
called pharmacy, pt meds changed to G tube administration. Not PO
[2021-06-07 09:10] VITALS: BP 115/68
[2021-06-07] MEDS: enoxaparin 40mg/0.4ml syringe SUBCUT SCH (09:23)
[2021-06-07] MEDS ORDERED: lactobacillus rhamnosus 10,000 MMU CELLS/CAPSULE PEG SCH (09:42)
[2021-06-07] MEDS ORDERED: mag hydrox/Alum hydrox/simeth 30ml oral suspension PEG PRN (09:42)
[2021-06-07] MEDS ORDERED: magnesium hydroxide 30ml (MOM) UD suspension PEG PRN (09:42)
[2021-06-07] MEDS ORDERED: docusate sodium 100mg/10ml UD cup PEG SCH (09:42)
[2021-06-07] MEDS ORDERED: acetaminophen 325mg/10.15ml oral unit dose solution PEG PRN ×2 (09:45)
[2021-06-07] MEDS ORDERED: TRAM50TA2 GT (10:35)
[2021-06-07] MEDS ORDERED: LEVO750T46 PO (10:35)
== END 2021-06-07 13:14 | disposition home or self-care (01) | DRG 698 ==
LOC: ER 15:01 → ED HOLD 17:45
PROVIDERS: ADMIT Internal Medicine; ATTEND Internal Medicine
DX: T83.511A Infection and inflammatory reaction due to indwelling urethral catheter, initial encounter (principal); G93.41 Metabolic encephalopathy; A41.52 Sepsis due to Pseudomonas; N39.0 Urinary tract infection, site not specified; K21.9 Gastro-esophageal reflux disease without esophagitis; B96.5 Pseudomonas (aeruginosa) (mallei) (pseudomallei) as the cause of diseases classified elsewhere; R31.9 Hematuria, unspecified; Y73.3 Surgical instruments, materials and gastroenterology and urology devices (including sutures) associated with adverse incidents; N20.0 Calculus of kidney; Z86.73 Personal history of transient ischemic attack (TIA), and cerebral infarction without residual deficits; Z87.440 Personal history of urinary (tract) infections; Z88.8 Allergy status to other drugs, medicaments and biological substances; Z79.899 Other long term (current) drug therapy; Y92.89 Other specified places as the place of occurrence of the external cause
CPT/HCPCS: 36415; 80048; 80053; 81001; 83605; 83735; 83880; 84134; 84145; 85007; 85025; 87040; 87077; 87088; 87186; 96365; 99285; G0378; J0692; J1650; J2270; J3370; J7030